=== PATIENT | female | born 1955 | race Caucasian/White ===

== ENCOUNTER 2016-12-08 07:19 | Inpatient (IN) | payer MEDICARE, OTHER ==
[2016-12-07 10:49] LABS: BASOPHILS 0 %; EOSINOPHILS 0 %; HEMATOCRIT 30.5 % (36.0-48.0); HEMOGLOBIN 9.7 g/dL (12.0-16.0); IMMATURE GRANULOCYTES 0.2 %; IMMATURE GRANULOCYTES ABSOLUTE 0.01 10/3/uL (0.0-0.11); LYMPHOCYTES 22.7 %; LYMPHOCYTES ABSOLUTE 1.47 10/3/uL (0.67-4.30); MEAN CORPUS HGB CONC 31.8 g/dL (32.0-36.0); MEAN PLATELET VOLUME 10.3 fL (9.2-13.0); MONOCYTES 9.2 %; NEUTROPHILS 67.9 %; NEUTROPHILS ABSOLUTE 4.41 10/3/uL (2.02-8.40); RBC DISTRIBUTION WIDTH 14.2 % (12.0-16.0); RED CELL COUNT 2.94 10/6/uL (4.0-5.6); WHITE BLOOD CELLS 6.5 10/3/uL (4.5-10.5)
[2016-12-07 10:50] LABS: MANUAL DIFF NO %; MEAN CORPUSCULAR VOLUME 103.7 fL (80-100); PLATELET COUNT 232 10/3/uL (150-400)
[2016-12-07 11:03] LABS: BUN (BLOOD UREA NITROGEN) 34 MG/DL (6-23); CHLORIDE, SERUM 112 MMOL/L (96-112); CO2 (CARBON DIOXIDE) 27 MMOL/L (24-34); CREATININE 0.89 MG/DL (0.55-1.02); GFR AFRICAN AMERICAN 82 ML/MIN (>=60); GFR NON AFRICAN AMERICAN 71 ML/MIN (>=60); POTASSIUM, SERUM 4.6 MMOL/L (3.5-5.3); SODIUM, SERUM 145 MMOL/L (135-148)
[2016-12-07 11:05] LABS: GLUCOSE, SERUM 87 MG/DL (60-99)
--- NOTE | ~2016-12-08 | DS ---
Discharge Summary [facility] [address] [place]. [address] NAME: DEMOND PARADA : 59 STATUS : DIS IN PAT#: [id number] AGE: 61 ADM/REG DATE : 12/08/16 MR#: [id number] REPORT SERV DATE: 01/02/17 DICTATED BY: WILLIAM MADDOX DATE: 01/02/17 REPORT STATUS : Draft TRANSCRIBED BY: MODJr DATE: 01/02/17 ADMISSION DATE: 12/08/2016 DISCHARGE DATE: 12/17/2016 ADMITTING DIAGNOSES: 1. Status post left tibiotalocalcaneal arthrodesis. 2. Charcot arthropathy, left rearfoot and ankle. SECONDARY DIAGNOSES: 1. Diabetes mellitus. 2. Peripheral neuropathy. 3. Status post right ankle fusion. 4. Seizure disorder. HISTORY OF PRESENT ILLNESS: This is a 61-year-old woman with long-standing history of diabetes mellitus with neuropathy. Unfortunately, this young lady has had severe sequela associated with her diabetic neuropathy including multiple ulcerations and previous partial foot amputation. The patient has also undergone a right tibiotalocalcaneal arthrodesis due to the severe Charcot arthropathy of the right rearfoot and ankle several years ago with good result. The patient has previously sustained a left ankle injury. The patient was seen at [facility] and underwent attempted open reduction and internal fixation of the left ankle. The patient's ankle remains displaced and further breakdown has occurred likely due to neuropathic changes as well as posttraumatic changes. The patient developed a pressure ulceration due to the malposition of her ankle. The patient was seen at [facility], where she was treated with IV antibiotic therapy. Removal of the retained internal fixation was performed due to the presence of the infection. The patient was admitted to rehab facility, where she underwent wound care and completed a course of six weeks of IV antibiotic therapy. The wound subsequently healed with good result. The patient was seen in the office and the ankle was evaluated. Due to the repair of the soft tissue envelope, it was recommended that the patient undergo left ankle arthrodesis in order to stabilize the unstable ankle due to her injury and Charcot arthropathy. BRIEF SUMMARY OF THE PATIENT'S HOSPITALIZATION: On hospital day 1, patient underwent left tibiotalocalcaneal arthrodesis with IM nail fixation. The procedure went well, and the rearfoot and ankle construct was in a good rectus position. The patient was placed in a below the knee AO splint and Vazquez compression dressing. The patient was admitted to the hospital for pain management, postoperative antibiotics, medical management of her diabetes, and DVT prophylaxis. The patient was seen by the hospitalist service and started on plan to control her diabetes. The patient was placed on sliding-scale insulin. The patient continued on a WOODYARD CRANE OPERATOR Dilaudid for postoperative pain management. Physical therapy consultation was ordered to assist patient with transfer training as well as nonweightbearing. The patient subsequently developed anemia and underwent transfusion of PRBCs, which she received one unit. There was improvement in her hemoglobin and hematocrit subsequently after the transfusion. The patient also developed this low-grade fever postoperatively. The patient was maintained on Ancef, but had a reaction to the antibiotic and was switched to IV clindamycin. The patient has fevers did gradually improve and her Discharge Summary [address] [address] NAME: DEMOND PARADA : 59 STATUS : DIS IN PAT#: [id number] AGE: 61 ADM/REG DATE : 12/08/16 MR#: [id number] REPORT SERV DATE: 01/02/17 DICTATED BY: WILLIAM MADDOX DATE: 01/02/17 REPORT STATUS : Draft TRANSCRIBED BY: JOCELYNE DATE: 01/02/17 anemia as well as blood glucose levels remain stable. Medicine looked for alternate causes of possible fevers including postoperative atelectasis or UTI. The patient was negative for both. The Dilaudid WOODYARD CRANE OPERATOR was eventually discontinued and patient was started on Lyrica for any neuropathic pain and continued on Percocet for any moderate breakthrough pain. The patient appeared to be medically stable and afebrile and was stable to be discharged to rehab facility. The patient remained in hospital for additional two to three days in order to find shelter placement. On 12/17/2016, the patient was transferred to [facility] for postoperative rehabilitation and assistance with essential activities of daily living. CONDITION ON DISCHARGE: Stable. DISCHARGE DIET: 1800 kcal ADA diet. DISCHARGE MEDICATIONS: Famotidine, Lipitor, Toujeo, Humalog, Keppra, Dilantin, Lyrica, Topamax, Fycompa. /MODL William Maddox D.P.M. / [id number] CC: Lisa Dahl SAJEEL
--- NOTE | ~2016-12-08 | CN ---
Consultation Report [facility] [address] [place]. [address] NAME: DEMOND PARADA : 59 STATUS : ADM IN [facility]#: [id number] AGE: 61 ADM/REG DATE : 12/08/16 MR#: [id number] REPORT SERV DATE: 12/09/16 DICTATED BY: ALIVIA FLORES DATE: 12/08/16 REPORT STATUS : Draft TRANSCRIBED BY: MODL DATE: 12/08/16 CONSULTATION DATE OF CONSULTATION: 12/08/2016 REASON FOR CONSULTATION: Consulted for medical management. REQUESTING PHYSICIAN: Dr. William Maddox. IDENTIFYING DATA: 1. PCP is a doctor in [place], [place], Dr. Henderson. 2. Neurologist is Dr. Destiney Okeefe. 3. Orthopedist is Dr. William Maddox. 4. Diabetes physician is Dr. Araiza. HISTORY OF PRESENT ILLNESS: This is a pleasant 61-year-old female, who has a history of being a type 1 diabetic with a seizure disorder, who has numerous surgeries for amputation as well as fractures and hardware removal. We have been consulted for medical management while she is inpatient. She is presently status post a left ankle fusion with Dr. William Maddox on 12/08/2016. The patient's history was obtained through careful interview with the patient coupled with review in [facility], [facility], analysis consultant notes, and old medical records. PAST MEDICAL HISTORY: 1. Seizure disorder. 2. Cataracts. 3. Wears reading glasses. 4. Menopause at age 45. 5. Diabetes type 1. When she was in rehab from 09/2016 to 11/2016, her average blood sugars were 155 to 250. 6. High cholesterol. 7. Hypertension. 8. Osteoporosis. 9. Iron deficiency anemia. 10.Neuropathy. 11.She was at [facility] in [place], [place] from 09/2016 to 11/2016 for IV antibiotics for left ankle osteomyelitis and management of her blood sugars. HOME MEDICATIONS: 1. Lipitor 20 mg p.o. at bedtime. 2. Toujeo units that are subcu at bedtime based on her blood sugars, where she gets 17 units for blood sugar of 70 to 200, 18 units for blood sugar of 201 to 300, and 19 units for blood sugar of 301 to 400. She is presently substituted with Levemir on Consultation Report [place] [address] [place]. [address] NAME: DEMOND PARADA : 59 STATUS : ADM IN PAT#: [id number] AGE: 61 ADM/REG DATE : 12/08/16 MR#: [id number] REPORT SERV DATE: 12/09/16 DICTATED BY: ALIVIA FLORES DATE: 12/08/16 REPORT STATUS : Draft TRANSCRIBED BY: JOCELYNE DATE: 12/08/16 inpatient status. 3. Humalog sliding scale, which she relates that she takes 5 units at breakfast, 5 units at lunch, and 5 units at dinner. 4. Keppra 4000 mg p.o. at bedtime. 5. Dilantin 200 mg p.o. daily. 6. Lyrica 50 mg p.o. twice a day. 7. Topamax 100 mg p.o. every morning. 8. Fycompa 6 mg p.o. daily. ALLERGIES: NO KNOWN ALLERGIES. SOCIAL HISTORY: The patient is a . She has three grown children. She presently lives with her daughter, but she does have a double-wide trailer. She was a previous smoker, but quit in the . She is nonweightbearing and utilizes a wheelchair. No alcohol or illicit drug use. FAMILY HISTORY: 1. Mother was diabetic and is from pneumonia. 2. Father had Parkinson disease and is from pneumonia. 3. She has one brother, who is diabetic and one sister, who is healthy and living. SURGICAL HISTORY: 1. Appendectomy in 1989. 2. Bilateral IOLI in 2012. 3. Left fourth and fifth toe amputation 01/2016. 4. Right ankle fracture with screws in 1990. 5. Right ankle fusion in 2002. 6. Left ankle fracture in 2014, where hardware was removed in 09/2016. 7. Amputation of the right great toe with removal of second toe bone in 2009. 8. x3. 9. Right wrist fracture with repair in 1989. 10.Left hand tendon surgery at age 15. 11.EGD with biopsy in 09/2004. REVIEW OF SYSTEMS: Negative other than what is included in HPI. Presently, the patient has no chest pain. No shortness of breath. Displays no agitation or confusion, has no fever, no abdominal pain. No nausea and vomiting, but she states she does not have an appetite tonight. PHYSICAL EXAMINATION: VITAL SIGNS: From today, blood pressure 114/65, heart rate 77, respiratory rate 16, O2 saturation 93%. GENERAL: This is a pleasant 61-year-old female, older appearing than her age. She is resting in bed, in no acute distress. NEURO: Her head is atraumatic, normocephalic. She is alert and oriented x3. Her mood is Consultation Report [place] [address] [facility] [address] NAME: DEMOND PARADA : 59 STATUS : ADM IN PAT#: [id number] AGE: 61 ADM/REG DATE : 12/08/16 MR#: [id number] REPORT SERV DATE: 12/09/16 DICTATED BY: ALIVIA FLORES DATE: 12/08/16 REPORT STATUS : Draft TRANSCRIBED BY: JOCELYNE DATE: 12/08/16 pleasant and appropriate. Her cranial nerves 2 through 12 are intact. NECK: Supple. Trachea is midline. No JVD noted. No obvious thyromegaly or lymphadenopathy. EENT: Her sclerae are nonicteric. Her pupils are equal and reactive to light. Her nares are patent. Her mucous membranes moist. Her tongue is midline without deviation. Her soft palate rises equally on phonation. CHEST: No pain with palpation. LUNGS: Clear to auscultation bilaterally with normal respiratory effort. She has no increased work of breathing with conversation. Encouraged to use incentive spirometer q.1 hour while awake to prevent pneumonia. CARDIOVASCULAR: S1, S2. No appreciable murmurs, rubs, or gallops. Rhythm is regular. Rate presently 77. She is on defensive monitoring. ABDOMEN: Soft, nontender, hypoactive bowel sounds. No organomegaly. Last bowel movement on 12/07/2016. EXTREMITIES: Right lower extremity, no edema. Left lower extremity has an Abelardo wrap postoperatively for her left ankle fusion. Normal distal pulse to the right lower extremity. SKIN: Warm and dry. No unusual rashes, lesions. Normal color and turgor. PSYCH: The patient is pleasant, cooperative, appropriate mood and affect. Surgical wound site, her Abelardo wrap to the left lower extremity is clean, dry, and intact. LABORATORY DATA: Sodium 145, potassium 4.6, chloride 112, BUN 34, creatinine 0.89, GFR 82, glucose 87, calcium 9.0. White blood cells 6.5, hemoglobin 9.2, hematocrit 28.0, platelets 232. Blood sugars from today noted as 132, 277, and 231. She had an EKG on 10/09/2016, that displayed normal sinus rhythm with a rate of 67, and a normal EKG. She had an echo previously in 11/2014 with an EF of 55%. ASSESSMENT AND PLAN: 1. This patient was in her 20s to early 30s, she is a diabetic type 1. Aware. At home, she is on Toujeo and Humalog before meals, which is normally 5 units subcutaneous before breakfast, lunch, and dinner. We did note in 2014 that her hemoglobin A1c was 12.2. We will initiate a life educator consult regarding diet and monitoring of her blood sugars, check a hemoglobin A1c this morning. She is not eating tonight at all, so we will hold her Levemir, but we will also check her blood sugar at 2 a.m. and cover her with a sliding scale level 2. We will initiate tomorrow starting with breakfast, lunch, and dinner. She will get 3 units of Humalog before each meal. Staff just needs to make sure the patient is able to eat. She states she is a very brittle diabetic, so there is a fine line in her maintenance. 2. Pain. Postop. She has had a left ankle fusion. She is on ANGLE SHEAR OPERATOR Dilaudid. We will do continuous O2 saturation monitoring while on ANGLE SHEAR OPERATOR and keep her sats 92% or greater. She has no previous history of respiratory problems. 3. Seizure disorder. Aware. She is followed by her neurologist, Dr. Okeefe. We will continue her home meds, which include Keppra, Dilantin, Topamax, and Fycompa for which I believe she has to bring in. 4. Neuropathy. Aware. We will continue her Lyrica. Consultation Report [place] [address] [place]. [address] NAME: DEMOND PARADA SHANTA : 59 STATUS : ADM IN [facility]#: [id number] AGE: 61 ADM/REG DATE : 12/08/16 MR#: [id number] REPORT SERV DATE: 12/09/16 DICTATED BY: MARTHA FLORESJAMMIE COATS DATE: 12/08/16 REPORT STATUS : Draft TRANSCRIBED BY: JOCELYNE DATE: 12/08/16 5. Hyperlipidemia. Aware. We will continue her Lipitor. 6. Labs. BMP, magnesium, CBC, and hemoglobin A1c will be per a.m. labs. We will give her scheduled Levemir starting tomorrow when she starts eating and she will also start her Humalog with 3 units before breakfast, lunch, and dinner and staff will need to make sure she will be eating, but she is a type 1 diabetic. The hospitalist group would like to thank you for this consultation. Please let us know if we could be of any further assistance. /JOCELYNE Alivia Flores NP / [id number] CC: Lisa Dahl MD
--- NOTE | ~2016-12-08 | OP ---
Record Of Operation [facility] [address] [place] [place]. [address] NAME: DEMOND PARADA : 59 STATUS : ADM Sarthak PAT#: [id number] AGE: 61 ADM/REG DATE : 12/08/16 MR#: [id number] REPORT SERV DATE: 12/09/16 DICTATED BY: WILLIAM MADDOX DATE: 12/09/16 REPORT STATUS : Draft TRANSCRIBED BY: MODL DATE: 12/09/16 DATE OF PROCEDURE: 12/08/2016 SURGEON: Dr. William Maddox. STEAM CRANE OPERATOR SURGEON: Anthony Perez DPM PREOPERATIVE DIAGNOSIS: Left Charcot ankle. POSTOPERATIVE DIAGNOSIS: Left Charcot ankle. PROCEDURE: Left tibiotalocalcaneal arthrodesis. ANESTHESIA: General. HEMOSTASIS: 350 mmHg thigh tourniquet. ESTIMATED BLOOD LOSS: 100 mL. MATERIALS: 2-0 Vicryl, 3-0 Vicryl, skin rio. Orly IM arthrodesis nail with four corresponding bone screws for the nail as well as [facility] bone putty. INJECTABLES: 14 mL of 1:1 mixture of 1% Xylocaine plain and 0.5% Marcaine plain. COMPLICATIONS: None. INDICATIONS: This is a 61-year-old white female who has had longstanding history of complications associated with diabetic neuropathy including multiple digital amputations. Patient has also had Charcot arthropathy on the right rear foot and ankle, which necessitated right tibiotalocalcaneal arthrodesis with good result. The patient unfortunately had an injury to her left ankle for which she was seen and treated at [facility]. Patient underwent open reduction and internal fixation. However, this failed and patient subsequently developed a medial ankle ulceration. The patient was seen at [facility] by our service, where the hardware was removed due to the corresponding infection, and she was started on a course of six weeks of IV antibiotics via PICC line. The patient did well with this corresponding therapy and the subsequent wound healed. Based on the patient's history of brittle diabetes and the malposition of the ankle, it was discussed with the patient that due to the Charcot arthropathy in the ankle and rear foot that she undergo a left tibiotalocalcaneal arthrodesis similar to what was done on her right side. We discussed with the patient at length as we did prior to the previous procedure that her history of brittle diabetes puts her at risk of further ulceration and limb loss if she does not have this deformity repaired. We also discussed that unfortunately due to her brittle diabetes and neuropathy that she is at risk for possible infection and nonhealing that could lead to amputation if the surgery is done. Patient understood the risks of the procedure and wished to proceed. The alternatives, benefits, possible complications of the procedure were discussed at length with the patient including the postoperative recovery period. No Record Of Operation [place] [id number] [facility] [place]. [place]. [address] NAME: DEMOND PARADA : 59 STATUS : ADM Sarthak PAT#: [id number] AGE: 61 ADM/REG DATE : 12/08/16 MR#: [id number] REPORT SERV DATE: 12/09/16 DICTATED BY: WILLIAM MADDOX DATE: 12/09/16 REPORT STATUS : Draft TRANSCRIBED BY: JOCELYNE DATE: 12/09/16 promises or guarantees were given and patient was scheduled for surgery. BRIEF SUMMARY OF OPERATION: The patient was brought to the operating room, transferred to the operating room table in supine position. Appropriate monitoring, including EKG, blood pressure, and pulse oximeter were attached to the patient and found to be in good working order. IV access was established by Anesthesia. Patient received preoperative antibiotics. After the patient was identified by the surgeon, general anesthesia was induced. The patient's left foot and leg were prepped and draped in a sterile manner. Left foot and leg were elevated and exsanguinated and a thigh tourniquet was raised to 350 mmHg. Attention was directed toward the lateral aspect of the left ankle where a curvilinear incision was made starting midline left distal fibula and coursing along the course of the peroneal tendons to the area of the base of the 4th metatarsal. Incision was deepened with sharp and blunt dissection. Superficial veins were identified and ligated via electrocautery. Neurovascular structures were identified, retracted from the operative site. Periosteal capsular layer was identified over the level of the distal fibula and a linear capsulotomy was performed over the distal fibula. At this time, the fibular fracture was identified and an osteotomy was performed with a sagittal saw just superior to this fracture site. The fibula was freed from its soft tissue attachments and removed. It was sent to the back table to possibly be later used for bone grafting material. Further deep dissection was carried out through the deep fascia between the plane of the extensor digitorum brevis muscle, which was released from its origin on the floor of the sinus tarsi and the peroneal tendon sheath. The muscle was retracted superiorly and peroneal tendons retracted inferiorly to further expose the lateral aspect of the ankle joint as well as the subtalar joint. The capsule of the subtalar joint was opened to expose the posterior facet of the subtalar joint. The interosseous talocalcaneal ligament was also released in order to facilitate further exposure of the ankle and subtalar joints. At this time, attention was directed toward the anteromedial aspect of the ankle joint, where a longitudinal incision was made over the medial gutter of the left ankle. The incision was deepened with sharp and blunt dissection and superficial veins were identified ligated via electrocautery. Neurovascular structures were identified, retracted from the operative site. Care was maintained not to disrupt the great saphenous vein. Incision through the deep fascia and capsular layer was carried out in order to expose the medial gutter of the left ankle. Soft tissue attachments of the anterior gutter were also released to further expose the talar dome. With good exposure of the ankle joint and subtalar joint, the hyaline cartilage and subchondral bone were removed from the inferior tibia as well as from the dorsal aspect of the talar dome. Hyaline cartilage and subchondral bone were also removed from the posterior facet of the subtalar joint. This was done with the osteotome and mallet as well as a rotary bur and curettage. Care was maintained in order to maintain the contours of the joint surfaces. Denudation of the cartilage and subchondral bone was carried out to the level of good bleeding bone. At this time, the arthrodesis sites were copiously irrigated with normal saline. The joints were placed in a rectus position in order to facilitate fusion. A pin was introduced across the fusion site through the plantar foot via fluoroscopy. Care was taken in order to insert the pin into the intramedullary canal of the left tibia and across the arthrodesis sites. Confirmation of proper position of the pin and rectus position of the fusion was confirmed via fluoroscopy. At this time, a horizontal incision was made at the area of the pin in order to facilitate insertion of the soft tissue Record Of [address] [place]. [address] NAME: DEMOND PARADA : 59 STATUS : ADM Sarthak PAT#: [id number] AGE: 61 ADM/REG DATE : 12/08/16 MR#: [id number] REPORT SERV DATE: 12/09/16 DICTATED BY: WILLIAM MADDOX DATE: 12/09/16 REPORT STATUS : Draft TRANSCRIBED BY: JOCELYNE DATE: 12/09/16 guide and drill. The fusion site was retrograde drilled through the plantar foot, the body of the talus, and into the tibia and into the intramedullary canal. The drill and percutaneous pin were removed. A subsequent pin was inserted into the plantar foot across the fusion sites in the previously made tunnel, and at this time, flexible cortical reamers were used in order to ream the intramedullary canal infusion sites. Reaming was carried out gradually increasing the diameter of the intramedullary reamer to 12 mm where good cortical chatter was heard and felt. The reamers were removed, pin was left in place, and a 150 mm 11 mm diameter IM nail was inserted across the fusion site through the plantar foot. Good position of the IM nail was confirmed via fluoroscopy. The pin was removed and the tibial screws were inserted across the nail followed by the lateral calcaneal and posterior calcaneal screws. Good rectus position of the IM nail as well as the fusion sites were confirmed via fluoroscopy. At this time, the operative site was copiously irrigated with normal saline. The tourniquet had also subsequently been let down at two hours tourniquet time to allow for reperfusion of the tissues. Any defects in the arthrodesis sites were packed with DBM bone putty. Periosteal capsular and deep fascial layers were reapproximated with 2-0 Vicryl suture. Subcutaneous tissue was reapproximated with 3-0 Vicryl suture. Skin at the medial and lateral incisions were then further reapproximated with skin rio. Percutaneous holes made for insertion of the screws across the IM nail were also closed with skin rio. The plantar incision was closed solely with 2-0 Ethilon suture in an interrupted horizontal mattress fashion. Operative site was infiltrated with 14 mL of 1:1 mixture of 1% Xylocaine plain and 0.5% Marcaine plain. Operative sites were then dressed with Xeroform and dry sterile gauze as well as sterile cast padding. The patient was then placed in a modified Vazquez compression dressing with an AO splint. Good capillary refill to the distal residual toes on the left foot was confirmed to be within normal limits after application of the Vazquez compression dressing and an AO splint. The patient tolerated procedure and anesthesia well. Patient left the operating room and returned to her room with vital signs stable and vital signs intact. The patient will be admitted to [facility] for continued IV antibiotic therapy and pain management. Subsequent postoperative care including DVT prophylaxis has also been initiated. A hospitalist consultation has been ordered and ordered for medical management due to the patient's history of brittle diabetes. Once the patient is medically and surgically stable, we will have her discharged home. Reiterated to the patient prior to surgery that strict nonweightbearing for at least eight weeks will be necessary and that we also discussed possible SNF placement for continued care of her right posterior heel wound as well as assistance with essential activities of daily living during the recovery process from her arthrodesis. We will follow up with the patient in the office in approximately one to two weeks' time. /JOCELYNE William Maddox D.P.M. / [id number] Record Of Operation [address] [address] NAME: DEMOND PARADA SHANTA : 59 STATUS : ADM Sarthak PAT#: [id number] AGE: 61 ADM/REG DATE : 12/08/16 MR#: [id number] REPORT SERV DATE: 12/09/16 DICTATED BY: WILLIAM MADDOX DATE: 12/09/16 REPORT STATUS : Draft TRANSCRIBED BY: MODL DATE: 12/09/16 CC: William Maddox D.P.M.
[~2016-12-08 07:19] MED LIST: ASAB PO; D100 PO; FYCOMPA PO; HUMALOGPEN SC; KEPPRA1000 MG PO; LANTUSCART SC; LIPITOR20 PO; LYRICA50 PO; MULTIVIT/MIN PO; MUSCLE RU3 TOP; PRIN20 PO; TOPAMAX25 PO; TOUJEO SQ
[2016-12-08 14:34] LABS: HEMOGLOBIN 9.2 g/dL (12.0-16.0)
[2016-12-08 22:07] LABS: HEMATOCRIT 26.7 % (36.0-48.0); HEMOGLOBIN 8.5 g/dL (12.0-16.0); MANUAL DIFF YES %; MEAN CORPUS HGB CONC 31.8 g/dL (32.0-36.0); MEAN CORPUSCULAR HEMOGLOB 32.6 pg (26.0-34.0); MEAN CORPUSCULAR VOLUME 102.3 fL (80-100); MEAN PLATELET VOLUME 9.6 fL (9.2-13.0); PLATELET COUNT 197 10/3/uL (150-400); RBC DISTRIBUTION WIDTH 14.2 % (12.0-16.0); RED CELL COUNT 2.61 10/6/uL (4.0-5.6); WHITE BLOOD CELLS 9.2 10/3/uL (4.5-10.5)
[2016-12-08 22:13] LABS: CHLORIDE, SERUM 109 MMOL/L (96-112); CO2 (CARBON DIOXIDE) 24 MMOL/L (24-34); CREATININE 0.87 MG/DL (0.55-1.02); GFR AFRICAN AMERICAN 85 ML/MIN (>=60); GFR NON AFRICAN AMERICAN 73 ML/MIN (>=60); POTASSIUM, SERUM 4.1 MMOL/L (3.5-5.3); SODIUM, SERUM 143 MMOL/L (135-148)
[2016-12-08 22:17] LABS: BUN (BLOOD UREA NITROGEN) 24 MG/DL (6-23); GLUCOSE, SERUM 171 MG/DL (60-99)
[2016-12-08 22:20] LABS: BAND NEUTROPHILS 4 %; LYMPHOCYTES 9 %; LYMPHOCYTES ABSOLUTE (CALC) 0.83 10/3/uL (0.67-4.30); MONOCYTES 4 %; MONOCYTES ABSOLUTE (CALC) 0.37 10/3/uL (0.21-1.20); SEGMENTED NEUTROPHIL (0) 83 %; TOTAL NUCLEATED CELLS 100
[2016-12-08 22:21] LABS: PLATELET ESTIMATE ADQ (ADEQUATE); RBC MORPHOLOGY NORM (NORMAL)
[2016-12-09 05:06] LABS: BASOPHILS 0 %; EOSINOPHILS 0 %; HEMATOCRIT 25.5 % (36.0-48.0); HEMOGLOBIN 8.3 g/dL (12.0-16.0); LYMPHOCYTES ABSOLUTE 1.15 10/3/uL (0.67-4.30); MEAN CORPUS HGB CONC 32.5 g/dL (32.0-36.0); MEAN CORPUSCULAR HEMOGLOB 33.7 pg (26.0-34.0); MEAN CORPUSCULAR VOLUME 103.7 fL (80-100); MEAN PLATELET VOLUME 10.1 fL (9.2-13.0); MONOCYTES 11.1 %; MONOCYTES ABSOLUTE 0.85 10/3/uL (0.21-1.20); NEUTROPHILS 73.9 %; NEUTROPHILS ABSOLUTE 5.69 10/3/uL (2.02-8.40); PLATELET COUNT 194 10/3/uL (150-400); RBC DISTRIBUTION WIDTH 14.2 % (12.0-16.0); RED CELL COUNT 2.46 10/6/uL (4.0-5.6); WHITE BLOOD CELLS 7.7 10/3/uL (4.5-10.5)
[2016-12-09 05:07] LABS: MANUAL DIFF NO %
[2016-12-09 05:17] LABS: BUN (BLOOD UREA NITROGEN) 22 MG/DL (6-23); CALCIUM, SERUM 7.8 MG/DL (8.5-10.4); CHLORIDE, SERUM 107 MMOL/L (96-112); CO2 (CARBON DIOXIDE) 27 MMOL/L (24-34); CREATININE 0.94 MG/DL (0.55-1.02); GFR AFRICAN AMERICAN 77 ML/MIN (>=60); GFR NON AFRICAN AMERICAN 66 ML/MIN (>=60); GLUCOSE, SERUM 203 MG/DL (60-99); POTASSIUM, SERUM 4.6 MMOL/L (3.5-5.3); SODIUM, SERUM 141 MMOL/L (135-148)
[2016-12-10 04:55] LABS: BASOPHILS 0 %; EOSINOPHILS 0 %; HEMATOCRIT 23.2 % (36.0-48.0); HEMOGLOBIN 7.5 g/dL (12.0-16.0); IMMATURE GRANULOCYTES 0.1 %; IMMATURE GRANULOCYTES ABSOLUTE 0.01 10/3/uL (0.0-0.11); LYMPHOCYTES 20.6 %; LYMPHOCYTES ABSOLUTE 1.39 10/3/uL (0.67-4.30); MEAN CORPUS HGB CONC 32.3 g/dL (32.0-36.0); MEAN CORPUSCULAR HEMOGLOB 33.5 pg (26.0-34.0); MEAN CORPUSCULAR VOLUME 103.6 fL (80-100); MONOCYTES ABSOLUTE 1.01 10/3/uL (0.21-1.20); NEUTROPHILS 64.3 %; NEUTROPHILS ABSOLUTE 4.34 10/3/uL (2.02-8.40); PLATELET COUNT 183 10/3/uL (150-400); RBC DISTRIBUTION WIDTH 14.1 % (12.0-16.0); RED CELL COUNT 2.24 10/6/uL (4.0-5.6); WHITE BLOOD CELLS 6.8 10/3/uL (4.5-10.5)
[2016-12-10 04:56] LABS: MANUAL DIFF NO %
[2016-12-10 05:13] LABS: BUN (BLOOD UREA NITROGEN) 28 MG/DL (6-23); CALCIUM, SERUM 8.1 MG/DL (8.5-10.4); CHLORIDE, SERUM 105 MMOL/L (96-112); CO2 (CARBON DIOXIDE) 26 MMOL/L (24-34); CREATININE 0.97 MG/DL (0.55-1.02); GFR AFRICAN AMERICAN 74 ML/MIN (>=60); GFR NON AFRICAN AMERICAN 64 ML/MIN (>=60); GLUCOSE, SERUM 271 MG/DL (60-99); POTASSIUM, SERUM 4.2 MMOL/L (3.5-5.3); SODIUM, SERUM 137 MMOL/L (135-148)
[2016-12-10 20:50] LABS: HEMATOCRIT 26.3 % (36.0-48.0); HEMOGLOBIN 8.7 g/dL (12.0-16.0)
[2016-12-11 04:01] LABS: HEMATOCRIT 25.7 % (36.0-48.0); HEMOGLOBIN 8.4 g/dL (12.0-16.0); MEAN CORPUS HGB CONC 32.7 g/dL (32.0-36.0); MEAN CORPUSCULAR HEMOGLOB 33.1 pg (26.0-34.0); MEAN CORPUSCULAR VOLUME 101.2 fL (80-100); MEAN PLATELET VOLUME 10.2 fL (9.2-13.0); PLATELET COUNT 184 10/3/uL (150-400); RBC DISTRIBUTION WIDTH 15.9 % (12.0-16.0); RED CELL COUNT 2.54 10/6/uL (4.0-5.6); WHITE BLOOD CELLS 8.2 10/3/uL (4.5-10.5)
[2016-12-11 04:11] LABS: MANUAL DIFF YES %
[2016-12-11 04:13] LABS: CALCIUM, SERUM 8.2 MG/DL (8.5-10.4); CHLORIDE, SERUM 105 MMOL/L (96-112); CO2 (CARBON DIOXIDE) 24 MMOL/L (24-34); CREATININE 1.09 MG/DL (0.55-1.02); GFR AFRICAN AMERICAN 64 ML/MIN (>=60); GFR NON AFRICAN AMERICAN 56 ML/MIN (>=60); SODIUM, SERUM 136 MMOL/L (135-148)
[2016-12-11 04:24] LABS: POTASSIUM, SERUM 5.1 MMOL/L (3.5-5.3)
[2016-12-11 04:25] LABS: BUN (BLOOD UREA NITROGEN) 24 MG/DL (6-23); GLUCOSE, SERUM 341 MG/DL (60-99)
[2016-12-11 04:29] LABS: LYMPHOCYTES 18 %; LYMPHOCYTES ABSOLUTE (CALC) 1.48 10/3/uL (0.67-4.30); MACROCYTES 1+ (5-10/OIF) (0-5/OIF); MONOCYTES 14 %; MONOCYTES ABSOLUTE (CALC) 1.15 10/3/uL (0.21-1.20); NEUTROPHILS ABSOLUTE (CALC) 5.58 10/3/uL (2.02-8.40); PLATELET ESTIMATE ADQ (ADEQUATE); SEGMENTED NEUTROPHIL (0) 68 %; TOTAL NUCLEATED CELLS 100
[2016-12-11 14:08] LABS: ASCORBIC ACID (UR NOT ORDER) NEG (NEG); BILIRUBIN, URINE NEGATIVE (NEG); KETONE, URINE 20 MG/DL (NEG); LEUKOCYTE ESTERASE(NOT OR NEG (NEG); WBC (NOT ORDERED) (RFLEX) 1 (0-5)
[2016-12-12 09:45] LABS: WBC (NOT ORDERED) (RFLEX) 0 (0-5)
[2016-12-12 09:51] LABS: ASCORBIC ACID (UR NOT ORDER) NEG (NEG); BILIRUBIN, URINE NEGATIVE (NEG); KETONE, URINE NEGATIVE (NEG); LEUKOCYTE ESTERASE(NOT OR NEG (NEG)
[2016-12-12 10:02] LABS: BASOPHILS 0.1 %; BASOPHILS ABSOLUTE 0.01 10/3/uL (0.0-0.16); EOSINOPHILS 0 %; HEMATOCRIT 27.1 % (36.0-48.0); HEMOGLOBIN 8.9 g/dL (12.0-16.0); IMMATURE GRANULOCYTES 0.2 %; IMMATURE GRANULOCYTES ABSOLUTE 0.02 10/3/uL (0.0-0.11); LYMPHOCYTES 15.4 %; LYMPHOCYTES ABSOLUTE 1.54 10/3/uL (0.67-4.30); MANUAL DIFF NO %; MEAN CORPUS HGB CONC 32.8 g/dL (32.0-36.0); MEAN CORPUSCULAR HEMOGLOB 32.8 pg (26.0-34.0); MEAN PLATELET VOLUME 10.5 fL (9.2-13.0); MONOCYTES 14.3 %; MONOCYTES ABSOLUTE 1.43 10/3/uL (0.21-1.20); PLATELET COUNT 249 10/3/uL (150-400); RED CELL COUNT 2.71 10/6/uL (4.0-5.6)
[2016-12-15 04:46] LABS: BASOPHILS 0 %; EOSINOPHILS 0 %; HEMATOCRIT 25.3 % (36.0-48.0); HEMOGLOBIN 8.3 g/dL (12.0-16.0); IMMATURE GRANULOCYTES 0.1 %; IMMATURE GRANULOCYTES ABSOLUTE 0.01 10/3/uL (0.0-0.11); LYMPHOCYTES 20.2 %; LYMPHOCYTES ABSOLUTE 1.39 10/3/uL (0.67-4.30); MEAN CORPUS HGB CONC 32.8 g/dL (32.0-36.0); MEAN CORPUSCULAR HEMOGLOB 33.1 pg (26.0-34.0); MEAN CORPUSCULAR VOLUME 100.8 fL (80-100); MEAN PLATELET VOLUME 9.8 fL (9.2-13.0); MONOCYTES 13.8 %; MONOCYTES ABSOLUTE 0.95 10/3/uL (0.21-1.20); NEUTROPHILS 65.9 %; NEUTROPHILS ABSOLUTE 4.54 10/3/uL (2.02-8.40); PLATELET COUNT 270 10/3/uL (150-400); RBC DISTRIBUTION WIDTH 14.3 % (12.0-16.0); RED CELL COUNT 2.51 10/6/uL (4.0-5.6); WHITE BLOOD CELLS 6.9 10/3/uL (4.5-10.5)
[2016-12-15 04:47] LABS: MANUAL DIFF NO %
[2016-12-16 04:58] LABS: CALCIUM, SERUM 8.7 MG/DL (8.5-10.4); CHLORIDE, SERUM 107 MMOL/L (96-112); CO2 (CARBON DIOXIDE) 26 MMOL/L (24-34); CREATININE 0.99 MG/DL (0.55-1.02); GFR AFRICAN AMERICAN 72 ML/MIN (>=60); GFR NON AFRICAN AMERICAN 62 ML/MIN (>=60); POTASSIUM, SERUM 4.7 MMOL/L (3.5-5.3); SODIUM, SERUM 140 MMOL/L (135-148)
[2016-12-16 04:59] LABS: BUN (BLOOD UREA NITROGEN) 40 MG/DL (6-23); GLUCOSE, SERUM 205 MG/DL (60-99)
== END 2016-12-17 14:19 | DRG 982 ==
LOC: SDC 07:19 → 3SO 17:08
PROVIDERS: Internal Medicine; Nurse Practitioner; Nurse Practitioner Family; Podiatrist
PROC: 0SGJ04Z Fusion of Left Tarsal Joint with Internal Fixation Device, Open Approach (ICD-10-PCS; 2016-12-08)
PROC: 0SGJ04Z Fusion of Left Tarsal Joint with Internal Fixation Device, Open Approach (ICD-10-PCS; 2016-12-08)
PROC: 0SGJ0JZ Fusion of Left Tarsal Joint with Synthetic Substitute, Open Approach (ICD-10-PCS; 2016-12-08)
PROC: 0SGJ0JZ Fusion of Left Tarsal Joint with Synthetic Substitute, Open Approach (ICD-10-PCS; 2016-12-08)
PROC: 0SGJ0JZ Fusion of Left Tarsal Joint with Synthetic Substitute, Open Approach (ICD-10-PCS; 2016-12-08)
PROC: 0SGJ04Z Fusion of Left Tarsal Joint with Internal Fixation Device, Open Approach (ICD-10-PCS; principal; 2016-12-08 08:45)
PROC: 30233N1 Transfusion of Nonautologous Red Blood Cells into Peripheral Vein, Percutaneous Approach (ICD-10-PCS; 2016-12-10)
DX: A52.16 Charcot's arthropathy (tabetic) (principal); L97.419 Non-pressure chronic ulcer of right heel and midfoot with unspecified severity; E10.621 Type 1 diabetes mellitus with foot ulcer; E10.42 Type 1 diabetes mellitus with diabetic polyneuropathy; E10.610 Type 1 diabetes mellitus with diabetic neuropathic arthropathy; D62 Acute posthemorrhagic anemia; E10.65 Type 1 diabetes mellitus with hyperglycemia; G40.909 Epilepsy, unspecified, not intractable, without status epilepticus; E78.5 Hyperlipidemia, unspecified
CPT/HCPCS: 36415; 71010; 73610-LT; 80048; 81001; 82947; 82962; 83036; 83735; 84145; 85014; 85018; 85025; 86850; 86900; 86901; 86920; 93005; 97110-GP; 97116-GP; 97161-GP; A9270-GY; C1713; C1769; G8978-CJ-GP; G8979-CI-GP; J0690; J1170; J2250; J2370; J2405; J2710; J3010; P9016; P9040

== ENCOUNTER 2017-01-21 17:44 | Inpatient (IN) | payer MEDICARE, OTHER ==
--- NOTE | ~2017-01-21 | CN ---
Consultation Report [facility] [address] [place]. [address] NAME: DEMOND PARADA : 59 STATUS : ADM IN [facility]#: [id number] AGE: 61 ADM/REG DATE : 01/21/17 MR#: [id number] REPORT SERV DATE: 01/23/17 DICTATED BY: STEFANI TONG DATE: 01/23/17 REPORT STATUS : Draft TRANSCRIBED BY: MODL DATE: 01/23/17 INFECTIOUS DISEASE CONSULT DATE OF CONSULTATION: REASON FOR REFERRAL: Evaluation and treatment of foot infection. HISTORY OF PRESENT ILLNESS: The patient is a 61-year-old female. She has a history of hypertension, diabetes mellitus, hyperlipidemia, past seizures, Charcot joint malformations in both feet. She underwent extensive surgery on 12/07/[address] Maddox, because of the Charcot changes, there was a left tibiotalar calcaneal arthrodesis, which involved placement of hardware, and she initially did well, but then about 10 days ago, she fell out of her chair, and her chair then rolled over her ankle, and suffering extensive trauma at the operative site. She had increase in pain, but did not seek medical attention until just a couple days ago at which point, when the cast was taken off. The wound was obviously infected, the screw had protruded out through the skin with the trauma. She was taken for debridement yesterday including bone biopsy. Material shows gram-positive cocci on the Gram stain. She did have fever to 101, just before the surgery. She was on no antibiotics prior to coming into the hospital. She is on empiric vancomycin and cefepime now. No other unusual environmental exposures or trauma. PAST MEDICAL HISTORY: Otherwise unremarkable. MEDICATIONS: As mentioned above. ALLERGIES: SHE HAS REPORTEDLY AN ALLERGY TO ANCEF, WHICH CAUSES A RASH. SOCIAL HISTORY: She was is disabled. . Nonsmoker. No history of alcohol or substance abuse. FAMILY HISTORY: Noncontributory. PHYSICAL EXAMINATION: GENERAL: A nontoxic adult female, in no acute distress. She is alert and oriented x3. VITAL SIGNS: Her temperature after the 101 night before last, decreased to 100.2 early yesterday morning, and normal since then 98.2 at present, with a pulse of 71, respirations 16, blood pressure 135/66, her weight is 55 kg. HEENT: Sclerae are clear. There are no oral lesions. NECK: Supple. LUNGS: Clear. HEART: Regular rate and rhythm. ABDOMEN: Soft, nontender. Positive bowel sounds. EXTREMITIES: The surgical site on the left foot is covered by a thick bulky dressing/cast, skin above it appeared to be normal. No other skin, soft tissue, or extremity lesions are Consultation Report [address] [place]. [address] NAME: DEMOND PARADA : 59 STATUS : ADM IN [facility]#: [id number] AGE: 61 ADM/REG DATE : 01/21/17 MR#: [id number] REPORT SERV DATE: 01/23/17 DICTATED BY: STEFANI TONG DATE: 01/23/17 REPORT STATUS : Draft TRANSCRIBED BY: JOCELYNE DATE: 01/23/17 noted. LABORATORY DATA: White blood cell count at admission was 9.5, it is 6.8 today, with hematocrit 25.8, platelets 252, normal differential. No white blood cell count. BUN and creatinine 22 and 0.74. Her sedimentation rate was greater than 140. Cultures are pending. Blood cultures that were sent at admission remain negative. The cultures on 01/21/2017, showed gram-positive cocci. IMPRESSION: Infection at the site of past surgery, due to trauma to it, and is most likely Staph aureus. RECOMMENDATIONS: 1. Continue vancomycin. 2. Stop cefepime. 3. Review the cultures later today. 4. Follow the patient with you. 5. I appreciate very much your consulting on this patient. TRACY Stefani Tong M.D. / [id number] CC: MD Adriel Rodríguez MD Aaron Solomon, D.P.Miriam
--- NOTE | ~2017-01-21 | OP ---
Record Of Operation [facility] [address] [place]. [address] NAME: DEMOND PARADA : 59 STATUS : DIS IN PAT#: [id number] AGE: 61 ADM/REG DATE : 01/21/17 MR#: [id number] REPORT SERV DATE: 02/15/17 DICTATED BY: DARRION ALLEN DATE: 02/15/17 REPORT STATUS : Draft TRANSCRIBED BY: MODL DATE: 02/15/17 DATE OF PROCEDURE: 02/05/2017 PREPROCEDURE DIAGNOSIS: Non-healing ankle fracture x2 years. PROCEDURE PERFORMED: Left below-knee amputation. ATTENDING PHYSICIAN: Darrion Allen MD. ANESTHESIA: General. COMPLICATIONS: None. INDICATION FOR PROCEDURE: Secondary to this very pleasant 61-year-old female, chronically ill secondary to a non-healing left ankle fracture. Secondary to this, the patient has been in multiple hospitalizations for the last two years associated with this MALDI. Recommendations were made for left below-knee amputation. Consent was obtained. DETAILS OF PROCEDURE: The patient was brought to the operating room, placed in supine position, prepped and draped in routine sterile fashion with attention to the left foot and leg. The anterior tibial tuberosity was then found and one hand stand below this. A transverse incision was made anteriorly and then a flap created posteriorly in a fishmouth type configuration. Dissection down through the skin, subcutaneous tissues, and to the medial lateral compartments were then performed, dissecting muscle. The vasculature was then located, clamped, divided, and then individually ligated. The tibia was then transected first a 45-degree angle and then a straight 90-degree angle to the plane of the bed and this created nice shelf on the tibia. The fibula was then transected and a piece of bone was removed. Next, the dissection proceeded down to the neurovascular bundle, which was clamped and divided. The posterior flap was then created and the specimen was then passed off to the field. Next, the major vascular and neurovascular structures were then ligated and divided and all bleeding points were then controlled with ligature or cautery and then the bone was rasped smooth. The whole area was then flushed copiously and then a 2nd round of hemostasis was obtained with cautery. At this point, the hemostasis was reasonable. The fascia was then closed with interrupted Vicryl suture and skin closed with rio. Standard pressure dressing was applied. The patient tolerated the procedure well. CL/MODL Darrion Allen M.D. / [id number] CC: Record Of Operation [address] [address] NAME: DEMOND PARADA : 59 STATUS : DIS IN PAT#: [id number] AGE: 61 ADM/REG DATE : 01/21/17 MR#: [id number] REPORT SERV DATE: 02/15/17 DICTATED BY: DARRION ALLEN DATE: 02/15/17 REPORT STATUS : Draft TRANSCRIBED BY: JOCELYNE DATE: 02/15/17 MD Adriel Lutz MD
--- NOTE | ~2017-01-21 | HP ---
History And Physical [place] [id number] [facility] [place]. [address] NAME: DEMOND PARADA : 59 STATUS : ADM IN [facility]#: [id number] AGE: 61 ADM/REG DATE : 01/21/17 MR#: [id number] REPORT SERV DATE: 01/22/17 DICTATED BY: IHSAN LUGO DATE: 01/21/17 REPORT STATUS : Draft TRANSCRIBED BY: MODJr DATE: 01/21/17 DATE OF ADMISSION: 01/21/2017 REASON FOR ADMISSION: Left foot osteomyelitis. HISTORY OF HOSPITAL STAY: A 61-year-old white female with past medical history of diabetes type 2, diabetic neuropathy, hypertension, hyperlipidemia, seizures, status post left tibial talocalcaneal arthrodesis secondary Charcot joint that was done on 12/09/[address] Maddox presenting with left foot osteomyelitis. The patient states that she fell approximately one week ago when she was trying to reach for her wheelchair and unfortunately, the wheelchair did not have the brakes lock and hence the patient fell. The patient did not seek medical attention at that time but rather waited for her usual appointment with Dr. Maddox for a followup for a left foot tibial talocalcaneal arthrodesis. During the time that the patient was being seen, the ui lead developer who saw the patient noted increased swelling on the left foot. Initial x-ray shows nothing unusual until the ui lead developer cut open the cast of the patient. On observation, the patient was noted to have a screw that was sticking out of the medial malleolus of the left foot, approximately about 3-5 mm were seen. At this point, the patient was then transferred to [facility] for further evaluation and treatment. Upon arrival on , the patient was asked if she had any symptoms of fevers, chills, chest pain, shortness of breath, cough, or sputum, the patient denied any symptoms whatsoever. PAST MEDICAL HISTORY: As above. MEDICATIONS: The patient takes: 1. Aspirin 81 mg p.o. daily. 2. Lipitor 40 mg p.o. daily. 3. Keppra 100 mg p.o. b.i.d. 4. Lisinopril 20 mg p.o. daily. 5. Lyrica 50 mg p.o. t.i.d. 6. Topiramate 25 mg p.o. b.i.d. 7. Toujeo SoloSTAR 30 units unknown units/frequency and Humalog sliding scale. 8. Multivitamin 1 tab daily next. ALLERGIES: NO KNOWN DRUG ALLERGIES. SOCIAL HISTORY: Nonsmoker, nondrinker. FAMILY HISTORY: Significant for diabetes, Parkinson's, and heart condition. REVIEW OF SYSTEMS: A 10-point review of systems conducted, which were negative except for above complaints. PHYSICAL EXAMINATION: VITAL SIGNS: Temp 98.7, pulse 82, respiratory rate 16, BP 142/74, and O2 saturation 98% on 2 L. History And Physical [address] [address] NAME: DEMOND PARADA : 59 STATUS : ADM IN [facility]#: [id number] AGE: 61 ADM/REG DATE : 01/21/17 MR#: [id number] REPORT SERV DATE: 01/22/17 DICTATED BY: IHSAN LUGO DATE: 01/21/17 REPORT STATUS : Draft TRANSCRIBED BY: JOCELYNE DATE: 01/21/17 HEENT: Head and neck; normocephalic and atraumatic. CARDIOVASCULAR: S1, S2. Regular rate and rhythm. LUNGS: Good air entry. No wheeze, rales, or rhonchi. ABDOMEN: Soft, nontender, nondistended. EXTREMITIES: No clubbing, cyanosis, or edema. There is an incision on the left lateral foot. Sobieski are intact, however, there is discharge approximately 11 inches. There is a screw extruding from the left medial malleolus approximately 3-5 mm. There is erythema around the site. The patient denies any pain on palpation. NEUROLOGICAL EXAM: Awake, alert, and oriented x3. Cranial nerves 2 through 12 grossly intact. LABS: None. ASSESSMENT AND PLAN: 1. Left foot osteomyelitis. The patient had a recent left tibial talocalcaneal arthrodesis secondary to Charcot joint. This was done on 12/09/2016. Need to rule out osteomyelitis. We will start the patient on Vanco as well as cefepime to cover for MRSA and Pseudomonas. Also, we will order CT scan of the left foot to further evaluation for osteomyelitis. In addition, we will have consult with Dr. Valladares, phone number [phone] for further evaluation of the left foot. 2. Diabetes type 2. We are going to continue the patient's sliding scale level 2. Check blood sugar a.c. and at bedtime and start the patient on Levemir 10 units subcu at bedtime. 3. Hypertension. Continue lisinopril, hydralazine p.r.n. for systolic greater than 160. 4. Hyperlipidemia. Continue Lipitor and check lipid panel. 5. Seizures. Continue Keppra and topiramate. 6. DVT prophylaxis. We will give the patient heparin. FBJ/MODL Ihsan Lugo MD / [id number] CC: MD Adriel Rodríguez MD
--- NOTE | ~2017-01-21 | OP ---
Record Of Operation [facility] [address] [place]. [address] NAME: DEMOND PARADA : 59 STATUS : ADM IN [facility]#: [id number] AGE: 61 ADM/REG DATE : 01/21/17 MR#: [id number] REPORT SERV DATE: 01/22/17 DICTATED BY: ANTHONY BRENNER DATE: 01/22/17 REPORT STATUS : Draft TRANSCRIBED BY: JOCELYNE DATE: 01/22/17 DATE OF PROCEDURE: PRE-PROCEDURE DIAGNOSES: 1. Charcot deformity of the left lower extremity. 2. Osteomyelitis of the left lower extremity. 3. Postop Charcot reconstruction with IM nail, left lower extremity. POSTPROCEDURE DIAGNOSES: 1. Charcot deformity of the left lower extremity. 2. Osteomyelitis of the left lower extremity. 3. Postop Charcot reconstruction with IM nail, left lower extremity. PROCEDURE PERFORMED: 1. Incision and drainage of the left foot and ankle. 2. Bone biopsy of the left foot and ankle. HEMOSTASIS: Locally controlled. MATERIALS UTILIZED: 3-0 nylon. SPECIMENS REMOVED: Calcaneal bone for biopsy, Shruti bone for biopsy, and IM wilfredo screw for pathology. INJECTABLES: None. ANESTHESIA: General anesthesia. COMPLICATIONS: None. INDICATIONS FOR PROCEDURE: This is a 61-year-old female, well known to Dr. Maddox's services, on 12/14/2016, he performed a tibiotalar calcaneal fusion as a Charcot reconstruction of the left lower extremity using an IM nail. The patient has been following up routinely with Dr. Maddox's. She has been nonweightbearing in a cast and was placed in a rehab facility immediately postoperatively. The patient was recently evaluated by another practitioner in his practice, at which point, she noted that there was an abnormality on x- ray imaging, which revealed that both the talar and calcaneal screws were backing out. She immediately took down the cast, and noted that there was exposed hardware of the calcaneus, and complete dehiscence of the lateral incision. She also noted there was significant erythema, edema, and warmth to the entire ankle complex, as well as the medial calcaneus. The patient was then sent immediately as a direct admit to [facility] where an x-ray images were obtained. Podiatry was consulted, at which point, the patient was seen at bedside, and there was noted to be exposed hardware. The hardware was immediately removed and sent for pathology as a specimen. The patient was immediately placed n.p.o. after midnight and scheduled for surgery the following day. The patient understands the risks, benefits, and complications of procedure and has elected to sign the consent. The patient Record Of [address] [place]. [address] NAME: DEMOND PARADA : 59 STATUS : ADM IN PAT#: [id number] AGE: 61 ADM/REG DATE : 01/21/17 MR#: [id number] REPORT SERV DATE: 01/22/17 DICTATED BY: ANTHONY BRENNER DATE: 01/22/17 REPORT STATUS : Draft TRANSCRIBED BY: JOCELYNE DATE: 01/22/17 also understands that in any procedure there are no guarantees given. The patient also understands that due to the nature of her condition, Charcot deformity, cellulitis, exposed hardware, and the possibility of hardware infection that she is at extremely high risk for osteomyelitis of the foot, ankle, and leg, which could result in a below-knee amputation. The patient also understands that this is going to be a staged situation at which point, Dr. Maddox, once he returns from vacation will be following up with the patient and evaluating again on Wednesday. Podiatry generating station mechanic will follow up with the patient over the weekend and monitor, and then defer care to Dr. Maddox's services. PROCEDURE IN DETAIL: The patient was brought into the operating room, placed on the operating table in supine position. After administration of the above mentioned anesthesia, a well-padded pneumatic tourniquet was placed about the left lower extremity, but was not inflated. The left lower extremity was then prepped and draped in usual aseptic manner. Attention was directed to the medial aspect of the foot and ankle where a long incision with rio from the first surgery were still in place. The rio were then removed and there was also noted to be complete exposure of half the talar screw. The talar screw was removed manually and passed off the operative field to the back table. The remaining rio were then removed. There was noted to be coapting of the skin incisions proximally, however, with the central portion dehiscence of approximately 5 cm in length and 3 cm in diameter, with complete penetration to the bone. There was significant cellulitis and warmth. There was no purulent drainage. A rongeur was utilized to excise a portion of bone where the previous screw has set in. Bone was passed off the operative field to be sent for pathology. Attention was then directed to the medial aspect of the calcaneus where the previous screw the day before had been removed. There was noted to be extensive cellulitis and warmth, and the screw hole measuring approximately 2 x [address] down to bone, therefore, rongeur was utilized to excise the calcaneal bone and passed off the operative field to be sent for pathology and microbiology in order to tailor antibiotics. Next, both the medial and lateral incisions were pulse lavaged with 3 L of normal sterile saline. Prior to this a hemostat was utilized for blunt dissection on both the medial and lateral side and under 90 degrees to make sure that there were no purulent pockets or abscesses around the dehiscence site, there was noted to be none. The incisions both medially and laterally were then pulse lavaged with 3 L of normal sterile saline. The proximal aspects of both dehisced medial and lateral sides were then reapproximated loosely with 3-0 Prolene in order to prevent bleeding as the patient had good vascularity, due to her Charcot deformity. The incision and wounds were then dressed with Adaptic, Betadine, 4x4s, ABD, Kerlix, and a removable posterior splint to prevent further dislocation of the ankle joint. 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 The patient tolerated anesthesia and procedure well, and was transferred to PACU, with vital signs stable, and neurovascularly intact. The patient will be followed up tomorrow with a repeat CBC, basic metabolic panel, as well as vitals per floor protocol. SB/MODL Record Of Operation [facility] [address] [facility] [address] NAME: DEMOND PARADA : 59 STATUS : ADM IN [facility]#: [id number] AGE: 61 ADM/REG DATE : 01/21/17 MR#: [id number] REPORT SERV DATE: 01/22/17 DICTATED BY: ANTHONY BRENNER DATE: 01/22/17 REPORT STATUS : Draft TRANSCRIBED BY: JOCELYNE DATE: 01/22/17 Anthony Brenner DPM / [id number] CC: MD Adriel Rodríguez MD
--- NOTE | ~2017-01-21 | DS ---
Discharge Summary [facility] [address] [place]. [address] NAME: DEMOND PARADA : 59 STATUS : DIS IN PAT#: [id number] AGE: 61 ADM/REG DATE : 01/21/17 MR#: [id number] REPORT SERV DATE: 02/12/17 DICTATED BY: DATE: REPORT STATUS : Draft TRANSCRIBED BY: MODL DATE: 02/10/17 ADMISSION DATE: 01/21/2017 DISCHARGE DATE: 02/10/2017 DISCHARGE DIAGNOSES: 1. Left foot osteomyelitis, postop day five, left below-knee amputation. 2. Diabetes mellitus type 2 with hyperglycemia. 3. Hypertension. 4. Dehydration. 5. Acute on chronic anemia. 6. Seizures. 7. Mild depression. CONSULTATIONS: 1. Psychiatry, Tommy Montes M.D. 2. Infectious Disease, Bill Arambula M.D. 3. Podiatry, Anthony Perez DPM. 4. Vascular, Darrion Allen M.D. PROCEDURES AND IMAGIN. 01/21/2017: X-ray of the left foot and ankle showed:. a. Status post arthrodesis of the tibiotalar and subtalar joints, one of the distal interlocking screws have been removed and the other appears to have backed out with the tip being just subjacent to the skin. There was an abundance of soft tissue swelling without definite plain film evidence of osteomyelitis. b. Expected appearance after amputation of the fourth and fifth digits without evidence of osteomyelitis in the foot. 2. 01/21/2017: CT of the left lower extremity without contrast showed:. a. Postoperative left ankle fusion. No obvious bone destruction is identified to strongly suggest osteomyelitis. b. Extensive left distal lower extremity edema. No definite abscess is appreciated. 3. 01/22/2017: Portable of the left ankle showed arthrodesis of the tibiotalar and subtalar joints with orthopedic and wilfredo traversing in distal left tibia and extending into the talus. Diffuse soft tissue swelling is similar to previous study. 4. [facility] findings compatible with sepsis of the tibiotalar joint. Since the medullary wilfredo extends through this region, osteomyelitis must be strongly considered. 5. 02/04/2017: Arterial Doppler of the left foot showed normal arterial flow to the right ankle. The right second toe waveforms are diminished indicating small vessel disease. Normal arterial flow to the left ankle and left posterior tibial artery. There is moderate disease involving the dorsalis pedis artery as indicated by monophasic flow. Left great toe waveform is diminished indicating small vessel disease. PROCEDURE: The patient has left BKA on 02/05/[address] Allen. Discharge Summary [address] [place]. [address] NAME: DEMOND PARADA : 59 STATUS : DIS IN PAT#: [id number] AGE: 61 ADM/REG DATE : 01/21/17 MR#: [id number] REPORT SERV DATE: 02/12/17 DICTATED BY: DATE: REPORT STATUS : Draft TRANSCRIBED BY: MODJr DATE: 02/10/17 HOSPITAL COURSE: Please refer to initial H and P dictated by Dr. Ihsan Lopez dated 01/22/2017 for complete details regarding patient's admission. Please refer to interim discharge summary by Darrion Johnson, nurse-practitioner, dictated on 02/01/2017. Please refer to interim discharge summary by Dr. Iain Coates, dated 02/08/2017. On my assumption of care, her blood sugar was uncontrolled with blood sugars being elevated up to 600. The patient was refusing to attempt Levemir due to previous hypoglycemic episodes when she was on this. The patient has been seeing Dr. Araiza, Endocrine, who had started her on Toujeo. We will be continuing Toujeo 10 units every a.m. and p.m. as well as having the patient on NovoLog 6 units with meals and NovoLog sliding scale level 2 with meals and at bedtime. The patient does suffer from acute on chronic anemia but is on no medication for this. This was exacerbated by having surgery and her hemoglobin has gotten as low as 7.5 with hematocrit of 23.9. Baseline for the last several years appears to be 8.5. The patient was given 1 L of fluid last night due to dehydration and BUN of 49. This subsequently placed her hemoglobin at 7.1 with hematocrit of 21.9, which we are assuming to be delusional. Iron studies have been done and serum iron is 39%, saturation is 21, vitamin D is 18, ferritin is 248, TIBC is 185, and B12 is 526. The patient will be started on 50,000 units today and will be using weekly x12 weeks. It was discussed with the patient that she should be following up with her PCP seven to 10 days postop to evaluate her daily vitamin D needs after 12 week treatment. The patient has not experienced any episodes of hypertension during this stay. Had previously been on Abelardo one year ago, but has not taken for the last year. The patient requires many medications for her seizures and is currently on Keppra, Dilantin, Topamax, and Fycompa. The patient has not experienced any seizure activity during her stay. The patient was evaluated by Dr. Montes and it was felt that she had mild situational depression due to her health needs and no recommendations of medication was given at that time. The patient has had a PICC line during her stay, which was discontinued yesterday when it was determined the patient did not need any IV antibiotics due to having her [id number] amputation. The patient has been refusing any pain medication due to fear of having hypoglycemic episodes and not being aware of her blood pressure dropping. The patient has not taken any narcotics in the last few days. Her current pain is 3/10 despite physical therapy. We are discharging the patient to rehab today if a bed is available. PHYSICAL EXAMINATION: VITAL SIGNS: Blood pressure 122/60, O2 saturation is 96% on room, temperature is 98.4, respirations are 16, and heart rate is 72. HEENT: Head is atraumatic, normocephalic. Pupils are equal, round, reactive to light and accommodation. No xanthelasma. Sclerae are clear and nonicteric. Good dentition. NECK: Supple with no palpable lymphadenopathy or thyromegaly. Neck veins are flat. CARDIAC: The patient has S1 and S2 with no obvious murmurs, rubs, or gallops. GASTROINTESTINAL: Abdomen is soft and nontender with active bowel sounds in all four quadrants. Normal bowel habitus. No palpable organomegaly. EXTREMITIES: The patient has 1+ posterior tibial pulse in her right lower extremity. Her right lower extremity is deformed with Charcot joints. The patient has scaling and a wound on her right heel. This has been treated by Wound Care and is getting Mepilex. The patient also has a left BK amputation. Discharge Summary [facility] [address] [facility] [place]. [address] NAME: DEMOND PARADA : 59 STATUS : DIS IN PAT#: [id number] AGE: 61 ADM/REG DATE : 01/21/17 MR#: [id number] REPORT SERV DATE: 02/12/17 DICTATED BY: DATE: REPORT STATUS : Draft TRANSCRIBED BY: JOCELYNE DATE: 02/10/17 MUSCULOSKELETAL: The patient moves all extremities x4. Is ambulatory with a walker. SKIN: Warm and dry with normal color and turgor. NEURO/PSYCH: The patient is alert and oriented x4, pleasant and cooperative. Cranial nerves 2 through 12 are grossly intact. DISCHARGE DIET: 1800 calorie diabetic diet. DISCHARGE MEDICATIONS: Atorvastatin 20 mg daily; NovoLog 6 units before meals, sliding scale level two, NovoLog before meals and at bedtime; Keppra 4000 mg at bedtime; Dilantin 200 mg every morning; Lyrica 50 mg twice daily; Fycompa 6 mg daily; Toujeo 10 units twice daily; Topamax 100 mg daily; Tylenol 650 mg p.o. or q.4 hours p.r.n. pain or temp greater than 101; Santyl ointment to right heel ulcer topically; Colace 100 mg twice daily as needed; glucose tablets three to six tablets p.r.n. low blood sugar; Zofran 4 mg p.o. or sublingually every four hours as needed for nausea and vomiting; and Senokot two tablets as needed at bedtime for constipation. ALLERGIES: THE PATIENT IS ALLERGIC TO CEFAZOLIN, BUT DOES NOT REMEMBER WHAT TYPE OF REACTION SHE HAD. DISCHARGE INSTRUCTIONS: The patient is to follow up with her PCP in seven to 10 days after rehab discharge. The patient will be following up with Vascular Surgery in six to seven weeks from discharge date here at the hospital. They will call patient with the appointment. The patient is to follow up with Dr. Araiza, Endocrinology, on 02/16/2017 for which she has an appointment. We are requesting [facility] to send a copy of her blood glucose log with blood sugars a.c. and at bedtime as well as her insulin administration from [facility]. Approximately 40 minutes has been spent coordinating discharge care of this patient including [id number] encounter and summarization of the discharge. DICTATED BY: SHENA Moon/JOCELYNE Elaine Christiansen NP / [id number] CC: MD Adriel Lutz MD
--- NOTE | ~2017-01-21 | IDS ---
Interim Discharge Summary [facility] [address] [place]. [address] NAME: DEMOND PARADA : 59 STATUS : ADM IN PAT#: [id number] AGE: 61 ADM/REG DATE : 01/21/17 MR#: [id number] REPORT SERV DATE: 02/08/17 DICTATED BY: SHELBY OLIVAS DATE: 02/08/17 REPORT STATUS : Draft TRANSCRIBED BY: MODJr DATE: 02/08/17 ADMISSION DATE: 01/21/2017 DISCHARGE DATE: This is an interim discharge summary, in addition to interim discharge summary dictated by Dr. Darrion Johnson, on 02/01/2017. I assumed care of the patient on 02/02/2017. The patient remained hemodynamically stable. At the time of my assumption of care, her blood sugar was not controlled. I did make adjustments to her insulin regimen as necessary, however the patient states that she was afraid of becoming hypoglycemic and would rather be on her home regimen, which was prescribed by her market research specialist. Given this request, the patient was returned back to her home insulin regimen. On this plan, the patient has severe fluctuations in her blood sugars. For her left foot osteomyelitis, the patient was taken to the OR on 02/05/2017 for a left vcgxq-fne-kuli amputation. Status post procedure, the patient was returned to the room, where she has remained hemodynamically stable. However status post procedure, the patient has appeared somewhat depressed. Given these findings, a psychiatry consult was placed to have the patient evaluated for depression and also initiation of medications if deemed necessary. All other information in the discharge summary remains the same. Plan at this point is for patient to be transferred to rehab for physical therapy. Case management is aware of the patient and working on getting the patient's placement. DISCHARGE PLANNING: To be made by oncoming physician. KIARRA Shelby Olivas MD / [id number] CC: MD Adriel Rodríguez MD
--- NOTE | ~2017-01-21 | IDS ---
Interim Discharge Summary [facility] [address] [place]. [address] NAME: DEMOND PARADA : 59 STATUS : ADM IN PAT#: [id number] AGE: 61 ADM/REG DATE : 01/21/17 MR#: [id number] REPORT SERV DATE: 02/01/17 DICTATED BY: DATE: REPORT STATUS : Draft TRANSCRIBED BY: MODL DATE: 02/01/17 ADMISSION DATE: 01/21/2017 DISCHARGE DATE: INTERIM DISCHARGE DIAGNOSES: 1. Left foot osteomyelitis. 2. Charcot deformity of left lower extremity. 3. Diabetes mellitus type 2. 4. Hypertension. 5. Hyperlipidemia. 6. Seizures. 7. Severe protein calorie malnutrition. CONSULTING PHYSICIANS: 1. Dr. Maddox with Podiatry. 2. Dr. John Freeman with Infectious Disease. IMAGING: This week, none. For a full H and P, please refer to Dr. Ihsan Lopez' dictation on 01/21/2017. HOSPITAL COURSE/PROBLEM LIST: Assumed care of this patient in collaboration with Dr. Jose A Zamarripa. On 01/26/2017, the patient has been receiving IV vancomycin for left foot osteomyelitis. She has been afebrile. Last white blood cell count was 7.4. We are awaiting left BKA per Dr. Maddox. Prior to surgery, she will get an indium white blood cell nuclear scan to assess the extent of her osteomyelitis. The biggest issue this week, her diabetes has been very difficult to control. She states she has had multiple physicians that have been unable to control her blood sugar as an outpatient. She is seeing Dr. Adriana Hui at [facility], an sizing machine and drier operator. I have discontinued the patient's Levemir and started her home Toujeo per her sizing machine and drier operator. Her blood sugar has ranged from the 40s to the 400s. I have spoken extensively with the patient concerning diet, unsure if the patient is eating too much during some meals and not enough during others. I explained the importance of eating consistently. This morning, blood glucose was 280, and then after lunch, she dropped to 49. The patient reports not drinking her Glucerna that she normally drinks with meals. Normally, I would not think that this would cause this big of a fluctuation in blood glucose levels. However, I explained to the patient that she should stay consistent with her diet and drink Glucerna with every meal to help regulate her blood sugars. We will adjust her insulin to keep her from getting hyperglycemic and monitor closely. Hypertension, this is controlled, blood pressure is 120s to 130s, systolic. Seizures, the patient has not had any seizure activity. Continued her on Dilantin and Keppra. The patient does have severe protein calorie malnutrition. I checked a pre- albumin, it was 6.3 two days ago. I repeated it today, it is up to 10 after adding Glucerna with meals. I have talked extensively with the patient concerning calorie and protein needs and the importance of these and healing process. She understands. DISCHARGE PLANNING: I am unclear when the patient is going to have a BKA, hopefully, in the Interim Discharge Summary [address] [place]. [address] NAME: DEMOND PARADA : 59 STATUS : ADM IN [facility]#: [id number] AGE: 61 ADM/REG DATE : 01/21/17 MR#: [id number] REPORT SERV DATE: 02/01/17 DICTATED BY: DATE: REPORT STATUS : Draft TRANSCRIBED BY: MODL DATE: 02/01/17 next several days. PT eval has been ordered. Case Management involved for discharge planning whether the patient needs inpatient rehab versus home health. The discharge date is depending on when the patient actually gets a BKA. CLR/MODL Darrion Johnson NP / [id number] CC: MD Adriel Lutz MD John Ekong, MD
[2017-01-21] MEDS ORDERED: D100 PO (20:41)
[2017-01-21] MEDS ORDERED: LYRICA50 PO (20:42)
[2017-01-21] MEDS ORDERED: FYCOMPA6 MG PO (20:42)
[2017-01-21] MEDS ORDERED: TOPAMAX100 PO (20:43)
[2017-01-21] MEDS ORDERED: KEPPRA1000 MG PO (20:44)
[2017-01-21] MEDS ORDERED: LIPITOR20 PO (20:45)
[2017-01-21] MEDS ORDERED: HUMALOG SC ×2 (20:47)
[2017-01-21] MEDS ORDERED: TOUJEO (20:47)
[2017-01-21 22:03] LABS: WBC (NOT ORDERED) (RFLEX) 0 (0-5)
[2017-01-21 22:13] LABS: INTERNATIONAL NORMAL RATI 1.2 UNITS (-); PARTIAL THROMBO TIME 33.2 SEC (22.5-37.2)
[2017-01-21 22:13] LABS: ASCORBIC ACID (UR NOT ORDER) NEG (NEG); BILIRUBIN, URINE NEGATIVE (NEG); KETONE, URINE TRACE MG/DL (NEG); LEUKOCYTE ESTERASE(NOT OR NEG (NEG)
[2017-01-21 22:21] LABS: BASOPHILS 0.1 %; BASOPHILS ABSOLUTE 0.01 10/3/uL (0.0-0.16); EOSINOPHILS 0 %; HEMATOCRIT 24.3 % (36.0-48.0); HEMOGLOBIN 7.8 g/dL (12.0-16.0); IMMATURE GRANULOCYTES 0.2 %; IMMATURE GRANULOCYTES ABSOLUTE 0.02 10/3/uL (0.0-0.11); LYMPHOCYTES 8.4 %; LYMPHOCYTES ABSOLUTE 0.79 10/3/uL (0.67-4.30); MANUAL DIFF NO %; MEAN CORPUS HGB CONC 32.1 g/dL (32.0-36.0); MEAN CORPUSCULAR HEMOGLOB 32.4 pg (26.0-34.0); MEAN CORPUSCULAR VOLUME 100.8 fL (80-100); MEAN PLATELET VOLUME 10.2 fL (9.2-13.0); MONOCYTES 9.4 %; MONOCYTES ABSOLUTE 0.89 10/3/uL (0.21-1.20); NEUTROPHILS 81.9 %; NEUTROPHILS ABSOLUTE 7.75 10/3/uL (2.02-8.40); PLATELET COUNT 285 10/3/uL (150-400); RBC DISTRIBUTION WIDTH 13.9 % (12.0-16.0); RED CELL COUNT 2.41 10/6/uL (4.0-5.6); WHITE BLOOD CELLS 9.5 10/3/uL (4.5-10.5)
[2017-01-21 22:25] LABS: A/G RATIO 0.5 (0.7-1.9); ALBUMIN 2.5 G/DL (3.5-5.0); ALKALINE PHOSPHATASE 152 U/L (45-117); CALCIUM, SERUM 9.1 MG/DL (8.5-10.4); CHLORIDE, SERUM 106 MMOL/L (96-112); CHOL/HDL RATIO(NOT ORDER) 3.8 (0-5); CHOLESTEROL 162 MG/DL (< 200); CO2 (CARBON DIOXIDE) 23 MMOL/L (24-34); CREATININE 1.18 MG/DL (0.55-1.02); GFR AFRICAN AMERICAN 58 ML/MIN (>=60); GFR NON AFRICAN AMERICAN 50 ML/MIN (>=60); GLOBULIN 4.9 G/DL (2.5-4.1); HDL CHOLESTEROL 43 MG/DL (> 49); LDL CHOLESTEROL 94 MG/DL (< 130); NON-HDL CHOLESTEROL 119 MG/DL (< 160); PHOSPHORUS, SERUM 3.1 MG/DL (2.5-4.5); POTASSIUM, SERUM 4.3 MMOL/L (3.5-5.3); SGOT(AST) 17 U/L (5-40); SGPT(ALT) 14 U/L (5-65); SODIUM, SERUM 138 MMOL/L (135-148); TOTAL BILIRUBIN 0.3 MG/DL (0-1.2); TOTAL PROTEIN 7.4 G/DL (6.0-8.5); TRIGLYCERIDE 125 MG/DL (< 150)
[2017-01-21 22:29] LABS: BUN (BLOOD UREA NITROGEN) 28 MG/DL (6-23)
[2017-01-21 22:30] LABS: GLUCOSE, SERUM 542 MG/DL (60-99)
[2017-01-21 23:00] LABS: SED RATE > 140 MM/HR (0-20)
[2017-01-22 06:49] LABS: INTERNATIONAL NORMAL RATI 1.2 UNITS (-); PROTIME (NOT ORD) 15.1 SEC (12.0-14.5)
[2017-01-22 06:50] LABS: BASOPHILS 0 %; EOSINOPHILS 0 %; HEMATOCRIT 21.9 % (36.0-48.0); HEMOGLOBIN 7.4 g/dL (12.0-16.0); IMMATURE GRANULOCYTES 0.2 %; IMMATURE GRANULOCYTES ABSOLUTE 0.02 10/3/uL (0.0-0.11); LYMPHOCYTES 11.1 %; LYMPHOCYTES ABSOLUTE 0.96 10/3/uL (0.67-4.30); MANUAL DIFF NO %; MEAN CORPUS HGB CONC 33.8 g/dL (32.0-36.0); MEAN CORPUSCULAR VOLUME 97.8 fL (80-100); MEAN PLATELET VOLUME 9.8 fL (9.2-13.0); MONOCYTES 12.1 %; MONOCYTES ABSOLUTE 1.04 10/3/uL (0.21-1.20); NEUTROPHILS 76.6 %; PLATELET COUNT 271 10/3/uL (150-400); RBC DISTRIBUTION WIDTH 13.9 % (12.0-16.0); RED CELL COUNT 2.24 10/6/uL (4.0-5.6); WHITE BLOOD CELLS 8.6 10/3/uL (4.5-10.5)
[2017-01-22 06:55] LABS: BUN (BLOOD UREA NITROGEN) 25 MG/DL (6-23); CALCIUM, SERUM 9.3 MG/DL (8.5-10.4); CHLORIDE, SERUM 111 MMOL/L (96-112); CO2 (CARBON DIOXIDE) 22 MMOL/L (24-34); CREATININE 0.87 MG/DL (0.55-1.02); GFR AFRICAN AMERICAN 85 ML/MIN (>=60); GFR NON AFRICAN AMERICAN 73 ML/MIN (>=60); POTASSIUM, SERUM 3.7 MMOL/L (3.5-5.3); SODIUM, SERUM 144 MMOL/L (135-148)
[2017-01-22 06:56] LABS: GLUCOSE, SERUM 119 MG/DL (60-99)
[2017-01-23 05:50] LABS: BASOPHILS 0 %; EOSINOPHILS 0 %; HEMATOCRIT 25.8 % (36.0-48.0); HEMOGLOBIN 8.4 g/dL (12.0-16.0); IMMATURE GRANULOCYTES 0.1 %; IMMATURE GRANULOCYTES ABSOLUTE 0.01 10/3/uL (0.0-0.11); LYMPHOCYTES 12.4 %; LYMPHOCYTES ABSOLUTE 0.85 10/3/uL (0.67-4.30); MANUAL DIFF NO %; MEAN CORPUS HGB CONC 32.6 g/dL (32.0-36.0); MEAN CORPUSCULAR HEMOGLOB 31.9 pg (26.0-34.0); MEAN CORPUSCULAR VOLUME 98.1 fL (80-100); MEAN PLATELET VOLUME 10.3 fL (9.2-13.0); MONOCYTES 10.4 %; MONOCYTES ABSOLUTE 0.71 10/3/uL (0.21-1.20); NEUTROPHILS 77.1 %; NEUTROPHILS ABSOLUTE 5.27 10/3/uL (2.02-8.40); PLATELET COUNT 252 10/3/uL (150-400); RBC DISTRIBUTION WIDTH 17.1 % (12.0-16.0); RED CELL COUNT 2.63 10/6/uL (4.0-5.6); WHITE BLOOD CELLS 6.8 10/3/uL (4.5-10.5)
[2017-01-23 06:03] LABS: BUN (BLOOD UREA NITROGEN) 22 MG/DL (6-23); CALCIUM, SERUM 8.6 MG/DL (8.5-10.4); CHLORIDE, SERUM 113 MMOL/L (96-112); CO2 (CARBON DIOXIDE) 20 MMOL/L (24-34); CREATININE 0.74 MG/DL (0.55-1.02); GFR AFRICAN AMERICAN 103 ML/MIN (>=60); GFR NON AFRICAN AMERICAN 89 ML/MIN (>=60); SGOT(AST) 9 U/L (5-40); SGPT(ALT) 8 U/L (5-65); SODIUM, SERUM 142 MMOL/L (135-148); TOTAL BILIRUBIN 0.5 MG/DL (0-1.2); TOTAL PROTEIN 6.3 G/DL (6.0-8.5)
[2017-01-23 06:17] LABS: A/G RATIO 0.4 (0.7-1.9); ALBUMIN 1.9 G/DL (3.5-5.0); ALKALINE PHOSPHATASE 121 U/L (45-117); GLOBULIN 4.4 G/DL (2.5-4.1); GLUCOSE, SERUM 184 MG/DL (60-99)
[2017-01-24 05:18] LABS: BASOPHILS 0 %; EOSINOPHILS 0 %; HEMATOCRIT 25.7 % (36.0-48.0); HEMOGLOBIN 8.3 g/dL (12.0-16.0); IMMATURE GRANULOCYTES 0.2 %; IMMATURE GRANULOCYTES ABSOLUTE 0.01 10/3/uL (0.0-0.11); LYMPHOCYTES 19.3 %; LYMPHOCYTES ABSOLUTE 1.28 10/3/uL (0.67-4.30); MEAN CORPUS HGB CONC 32.3 g/dL (32.0-36.0); MEAN CORPUSCULAR HEMOGLOB 31.6 pg (26.0-34.0); MEAN CORPUSCULAR VOLUME 97.7 fL (80-100); MONOCYTES 12.5 %; MONOCYTES ABSOLUTE 0.83 10/3/uL (0.21-1.20); NEUTROPHILS ABSOLUTE 4.51 10/3/uL (2.02-8.40); PLATELET COUNT 287 10/3/uL (150-400); RBC DISTRIBUTION WIDTH 16.1 % (12.0-16.0); RED CELL COUNT 2.63 10/6/uL (4.0-5.6); WHITE BLOOD CELLS 6.6 10/3/uL (4.5-10.5)
[2017-01-24 05:20] LABS: MANUAL DIFF NO %
[2017-01-24 05:34] LABS: A/G RATIO 0.4 (0.7-1.9); ALBUMIN 1.9 G/DL (3.5-5.0); BUN (BLOOD UREA NITROGEN) 22 MG/DL (6-23); CALCIUM, SERUM 8.6 MG/DL (8.5-10.4); CHLORIDE, SERUM 111 MMOL/L (96-112); CO2 (CARBON DIOXIDE) 21 MMOL/L (24-34); CREATININE 0.86 MG/DL (0.55-1.02); GFR AFRICAN AMERICAN 86 ML/MIN (>=60); GFR NON AFRICAN AMERICAN 74 ML/MIN (>=60); GLOBULIN 4.4 G/DL (2.5-4.1); SGOT(AST) 14 U/L (5-40); SGPT(ALT) 10 U/L (5-65); SODIUM, SERUM 139 MMOL/L (135-148); TOTAL BILIRUBIN 0.3 MG/DL (0-1.2); TOTAL PROTEIN 6.3 G/DL (6.0-8.5)
[2017-01-24 05:35] LABS: ALKALINE PHOSPHATASE 140 U/L (45-117); GLUCOSE, SERUM 247 MG/DL (60-99)
[2017-01-25 07:12] LABS: BASOPHILS 0.2 %; BASOPHILS ABSOLUTE 0.01 10/3/uL (0.0-0.16); EOSINOPHILS 0 %; HEMATOCRIT 26.4 % (36.0-48.0); HEMOGLOBIN 8.3 g/dL (12.0-16.0); IMMATURE GRANULOCYTES 0.3 %; IMMATURE GRANULOCYTES ABSOLUTE 0.02 10/3/uL (0.0-0.11); LYMPHOCYTES 20.2 %; LYMPHOCYTES ABSOLUTE 1.32 10/3/uL (0.67-4.30); MEAN CORPUS HGB CONC 31.4 g/dL (32.0-36.0); MEAN CORPUSCULAR HEMOGLOB 31.6 pg (26.0-34.0); MEAN CORPUSCULAR VOLUME 100.4 fL (80-100); MONOCYTES 13.6 %; MONOCYTES ABSOLUTE 0.89 10/3/uL (0.21-1.20); NEUTROPHILS 65.7 %; NEUTROPHILS ABSOLUTE 4.31 10/3/uL (2.02-8.40); PLATELET COUNT 335 10/3/uL (150-400); RBC DISTRIBUTION WIDTH 15.6 % (12.0-16.0); RED CELL COUNT 2.63 10/6/uL (4.0-5.6); WHITE BLOOD CELLS 6.6 10/3/uL (4.5-10.5)
[2017-01-25 07:15] LABS: MANUAL DIFF NO %
[2017-01-25 07:33] LABS: A/G RATIO 0.4 (0.7-1.9); ALBUMIN 1.8 G/DL (3.5-5.0); ALKALINE PHOSPHATASE 144 U/L (45-117); BUN (BLOOD UREA NITROGEN) 26 MG/DL (6-23); CALCIUM, SERUM 8.5 MG/DL (8.5-10.4); CHLORIDE, SERUM 111 MMOL/L (96-112); CO2 (CARBON DIOXIDE) 23 MMOL/L (24-34); CREATININE 0.81 MG/DL (0.55-1.02); GFR AFRICAN AMERICAN 92 ML/MIN (>=60); GFR NON AFRICAN AMERICAN 79 ML/MIN (>=60); GLOBULIN 4.6 G/DL (2.5-4.1); GLUCOSE, SERUM 238 MG/DL (60-99); SGOT(AST) 10 U/L (5-40); SGPT(ALT) 10 U/L (5-65); SODIUM, SERUM 143 MMOL/L (135-148); TOTAL BILIRUBIN 0.3 MG/DL (0-1.2); TOTAL PROTEIN 6.4 G/DL (6.0-8.5)
[2017-01-26 06:27] LABS: BASOPHILS 0.2 %; BASOPHILS ABSOLUTE 0.01 10/3/uL (0.0-0.16); EOSINOPHILS 0 %; HEMATOCRIT 28.7 % (36.0-48.0); HEMOGLOBIN 9.1 g/dL (12.0-16.0); IMMATURE GRANULOCYTES 0.2 %; IMMATURE GRANULOCYTES ABSOLUTE 0.01 10/3/uL (0.0-0.11); LYMPHOCYTES 22.2 %; LYMPHOCYTES ABSOLUTE 1.43 10/3/uL (0.67-4.30); MEAN CORPUS HGB CONC 31.7 g/dL (32.0-36.0); MEAN CORPUSCULAR HEMOGLOB 31.9 pg (26.0-34.0); MEAN CORPUSCULAR VOLUME 100.7 fL (80-100); MEAN PLATELET VOLUME 10.1 fL (9.2-13.0); MONOCYTES 15.2 %; MONOCYTES ABSOLUTE 0.98 10/3/uL (0.21-1.20); NEUTROPHILS 62.2 %; NEUTROPHILS ABSOLUTE 4.02 10/3/uL (2.02-8.40); PLATELET COUNT 388 10/3/uL (150-400); RBC DISTRIBUTION WIDTH 15.3 % (12.0-16.0); RED CELL COUNT 2.85 10/6/uL (4.0-5.6); WHITE BLOOD CELLS 6.5 10/3/uL (4.5-10.5)
[2017-01-26 06:28] LABS: MANUAL DIFF NO %
[2017-01-26 06:39] LABS: A/G RATIO 0.4 (0.7-1.9); BUN (BLOOD UREA NITROGEN) 24 MG/DL (6-23); CALCIUM, SERUM 9.3 MG/DL (8.5-10.4); CHLORIDE, SERUM 112 MMOL/L (96-112); CO2 (CARBON DIOXIDE) 26 MMOL/L (24-34); CREATININE 0.74 MG/DL (0.55-1.02); GFR AFRICAN AMERICAN 103 ML/MIN (>=60); GFR NON AFRICAN AMERICAN 89 ML/MIN (>=60); POTASSIUM, SERUM 3.8 MMOL/L (3.5-5.3); SGOT(AST) 14 U/L (5-40); SGPT(ALT) 8 U/L (5-65); SODIUM, SERUM 146 MMOL/L (135-148); TOTAL BILIRUBIN 0.2 MG/DL (0-1.2)
[2017-01-26 06:40] LABS: ALKALINE PHOSPHATASE 159 U/L (45-117); GLUCOSE, SERUM 76 MG/DL (60-99)
[2017-01-27 06:09] LABS: BASOPHILS 0 %; EOSINOPHILS 0 %; HEMATOCRIT 26.2 % (36.0-48.0); HEMOGLOBIN 8.4 g/dL (12.0-16.0); IMMATURE GRANULOCYTES 0.4 %; IMMATURE GRANULOCYTES ABSOLUTE 0.03 10/3/uL (0.0-0.11); LYMPHOCYTES 20.2 %; LYMPHOCYTES ABSOLUTE 1.49 10/3/uL (0.67-4.30); MEAN CORPUS HGB CONC 32.1 g/dL (32.0-36.0); MEAN CORPUSCULAR HEMOGLOB 31.9 pg (26.0-34.0); MEAN CORPUSCULAR VOLUME 99.6 fL (80-100); MEAN PLATELET VOLUME 9.8 fL (9.2-13.0); MONOCYTES 12.7 %; MONOCYTES ABSOLUTE 0.94 10/3/uL (0.21-1.20); NEUTROPHILS 66.7 %; NEUTROPHILS ABSOLUTE 4.92 10/3/uL (2.02-8.40); PLATELET COUNT 410 10/3/uL (150-400); RBC DISTRIBUTION WIDTH 15.1 % (12.0-16.0); RED CELL COUNT 2.63 10/6/uL (4.0-5.6); WHITE BLOOD CELLS 7.4 10/3/uL (4.5-10.5)
[2017-01-27 06:13] LABS: MANUAL DIFF NO %
[2017-01-27 06:54] LABS: BUN (BLOOD UREA NITROGEN) 26 MG/DL (6-23); CALCIUM, SERUM 8.8 MG/DL (8.5-10.4); CHLORIDE, SERUM 113 MMOL/L (96-112); CO2 (CARBON DIOXIDE) 25 MMOL/L (24-34); CREATININE 0.77 MG/DL (0.55-1.02); FOLATE 5.2 NG/ML (>5.2); GFR AFRICAN AMERICAN 98 ML/MIN (>=60); GFR NON AFRICAN AMERICAN 85 ML/MIN (>=60); GLUCOSE, SERUM 83 MG/DL (60-99); POTASSIUM, SERUM 3.9 MMOL/L (3.5-5.3); PREALBUMIN 6.3 MG/DL (17.0-43.0); SODIUM, SERUM 145 MMOL/L (135-148)
[2017-01-29 06:54] LABS: BUN (BLOOD UREA NITROGEN) 30 MG/DL (6-23); CALCIUM, SERUM 8.5 MG/DL (8.5-10.4); CHLORIDE, SERUM 107 MMOL/L (96-112); CO2 (CARBON DIOXIDE) 23 MMOL/L (24-34); CREATININE 0.95 MG/DL (0.55-1.02); GFR AFRICAN AMERICAN 76 ML/MIN (>=60); GFR NON AFRICAN AMERICAN 66 ML/MIN (>=60); GLUCOSE, SERUM 433 MG/DL (60-99); POTASSIUM, SERUM 4.9 MMOL/L (3.5-5.3); SODIUM, SERUM 140 MMOL/L (135-148)
[2017-01-31 05:23] LABS: BUN (BLOOD UREA NITROGEN) 32 MG/DL (6-23); CHLORIDE, SERUM 106 MMOL/L (96-112); CO2 (CARBON DIOXIDE) 24 MMOL/L (24-34); CREATININE 0.88 MG/DL (0.55-1.02); GFR AFRICAN AMERICAN 83 ML/MIN (>=60); GFR NON AFRICAN AMERICAN 72 ML/MIN (>=60); GLUCOSE, SERUM 346 MG/DL (60-99); POTASSIUM, SERUM 5.1 MMOL/L (3.5-5.3); SODIUM, SERUM 139 MMOL/L (135-148)
[2017-02-02 06:29] LABS: BASOPHILS 0 %; EOSINOPHILS 0 %; HEMATOCRIT 28.1 % (36.0-48.0); HEMOGLOBIN 8.8 g/dL (12.0-16.0); IMMATURE GRANULOCYTES 0.3 %; IMMATURE GRANULOCYTES ABSOLUTE 0.02 10/3/uL (0.0-0.11); LYMPHOCYTES 22.1 %; LYMPHOCYTES ABSOLUTE 1.47 10/3/uL (0.67-4.30); MEAN CORPUS HGB CONC 31.3 g/dL (32.0-36.0); MEAN CORPUSCULAR HEMOGLOB 31.8 pg (26.0-34.0); MEAN CORPUSCULAR VOLUME 101.4 fL (80-100); MEAN PLATELET VOLUME 9.9 fL (9.2-13.0); MONOCYTES 12.5 %; MONOCYTES ABSOLUTE 0.83 10/3/uL (0.21-1.20); NEUTROPHILS 65.1 %; NEUTROPHILS ABSOLUTE 4.34 10/3/uL (2.02-8.40); PLATELET COUNT 469 10/3/uL (150-400); RBC DISTRIBUTION WIDTH 15.2 % (12.0-16.0); RED CELL COUNT 2.77 10/6/uL (4.0-5.6); WHITE BLOOD CELLS 6.7 10/3/uL (4.5-10.5)
[2017-02-02 06:30] LABS: MANUAL DIFF NO %
[2017-02-02 06:34] LABS: BUN (BLOOD UREA NITROGEN) 33 MG/DL (6-23); CALCIUM, SERUM 9.2 MG/DL (8.5-10.4); CHLORIDE, SERUM 109 MMOL/L (96-112); CO2 (CARBON DIOXIDE) 27 MMOL/L (24-34); CREATININE 0.82 MG/DL (0.55-1.02); GFR AFRICAN AMERICAN 91 ML/MIN (>=60); GFR NON AFRICAN AMERICAN 78 ML/MIN (>=60); GLUCOSE, SERUM 322 MG/DL (60-99); PHOSPHORUS, SERUM 3.7 MG/DL (2.5-4.5); POTASSIUM, SERUM 4.9 MMOL/L (3.5-5.3); SODIUM, SERUM 141 MMOL/L (135-148)
[2017-02-03 06:13] LABS: BASOPHILS 0 %; EOSINOPHILS 0 %; HEMOGLOBIN 8.5 g/dL (12.0-16.0); IMMATURE GRANULOCYTES 0.1 %; IMMATURE GRANULOCYTES ABSOLUTE 0.01 10/3/uL (0.0-0.11); LYMPHOCYTES 21.3 %; LYMPHOCYTES ABSOLUTE 1.57 10/3/uL (0.67-4.30); MEAN CORPUS HGB CONC 31.5 g/dL (32.0-36.0); MEAN CORPUSCULAR HEMOGLOB 31.7 pg (26.0-34.0); MEAN CORPUSCULAR VOLUME 100.7 fL (80-100); MEAN PLATELET VOLUME 9.7 fL (9.2-13.0); MONOCYTES 10.5 %; MONOCYTES ABSOLUTE 0.77 10/3/uL (0.21-1.20); NEUTROPHILS 68.1 %; NEUTROPHILS ABSOLUTE 5.01 10/3/uL (2.02-8.40); PLATELET COUNT 452 10/3/uL (150-400); RBC DISTRIBUTION WIDTH 15.2 % (12.0-16.0); RED CELL COUNT 2.68 10/6/uL (4.0-5.6); WHITE BLOOD CELLS 7.4 10/3/uL (4.5-10.5)
[2017-02-03 06:14] LABS: MANUAL DIFF NO %
[2017-02-03 06:31] LABS: A/G RATIO 0.5 (0.7-1.9); ALBUMIN 2.3 G/DL (3.5-5.0); ALKALINE PHOSPHATASE 150 U/L (45-117); BUN (BLOOD UREA NITROGEN) 36 MG/DL (6-23); CALCIUM, SERUM 9.1 MG/DL (8.5-10.4); CHLORIDE, SERUM 109 MMOL/L (96-112); CO2 (CARBON DIOXIDE) 29 MMOL/L (24-34); CREATININE 0.82 MG/DL (0.55-1.02); GFR AFRICAN AMERICAN 91 ML/MIN (>=60); GFR NON AFRICAN AMERICAN 78 ML/MIN (>=60); GLOBULIN 4.8 G/DL (2.5-4.1); POTASSIUM, SERUM 4.6 MMOL/L (3.5-5.3); SGOT(AST) 12 U/L (5-40); SGPT(ALT) 11 U/L (5-65); SODIUM, SERUM 143 MMOL/L (135-148); TOTAL BILIRUBIN 0.5 MG/DL (0-1.2); TOTAL PROTEIN 7.1 G/DL (6.0-8.5)
[2017-02-03 06:32] LABS: GLUCOSE, SERUM 90 MG/DL (60-99)
[2017-02-04 06:06] LABS: BASOPHILS 0 %; EOSINOPHILS 0 %; HEMATOCRIT 26.9 % (36.0-48.0); HEMOGLOBIN 8.5 g/dL (12.0-16.0); IMMATURE GRANULOCYTES 0.2 %; IMMATURE GRANULOCYTES ABSOLUTE 0.01 10/3/uL (0.0-0.11); LYMPHOCYTES 23.6 %; LYMPHOCYTES ABSOLUTE 1.55 10/3/uL (0.67-4.30); MEAN CORPUS HGB CONC 31.6 g/dL (32.0-36.0); MEAN CORPUSCULAR HEMOGLOB 32.1 pg (26.0-34.0); MEAN CORPUSCULAR VOLUME 101.5 fL (80-100); MEAN PLATELET VOLUME 9.3 fL (9.2-13.0); MONOCYTES 13.3 %; MONOCYTES ABSOLUTE 0.87 10/3/uL (0.21-1.20); NEUTROPHILS 62.9 %; NEUTROPHILS ABSOLUTE 4.13 10/3/uL (2.02-8.40); PLATELET COUNT 414 10/3/uL (150-400); RBC DISTRIBUTION WIDTH 15.3 % (12.0-16.0); RED CELL COUNT 2.65 10/6/uL (4.0-5.6); WHITE BLOOD CELLS 6.6 10/3/uL (4.5-10.5)
[2017-02-04 06:07] LABS: MANUAL DIFF NO %
[2017-02-04 06:24] LABS: A/G RATIO 0.5 (0.7-1.9); ALBUMIN 2.3 G/DL (3.5-5.0); ALKALINE PHOSPHATASE 144 U/L (45-117); CALCIUM, SERUM 8.9 MG/DL (8.5-10.4); CHLORIDE, SERUM 108 MMOL/L (96-112); CO2 (CARBON DIOXIDE) 27 MMOL/L (24-34); CREATININE 0.94 MG/DL (0.55-1.02); GFR AFRICAN AMERICAN 77 ML/MIN (>=60); GFR NON AFRICAN AMERICAN 66 ML/MIN (>=60); GLOBULIN 4.7 G/DL (2.5-4.1); POTASSIUM, SERUM 5.1 MMOL/L (3.5-5.3); SGOT(AST) 10 U/L (5-40); SGPT(ALT) 12 U/L (5-65); SODIUM, SERUM 140 MMOL/L (135-148)
[2017-02-04 06:25] LABS: BUN (BLOOD UREA NITROGEN) 42 MG/DL (6-23); GLUCOSE, SERUM 216 MG/DL (60-99)
[2017-02-05 06:30] LABS: BASOPHILS 0 %; EOSINOPHILS 0 %; HEMATOCRIT 28.1 % (36.0-48.0); HEMOGLOBIN 8.7 g/dL (12.0-16.0); IMMATURE GRANULOCYTES 0.3 %; IMMATURE GRANULOCYTES ABSOLUTE 0.02 10/3/uL (0.0-0.11); LYMPHOCYTES 22.9 %; LYMPHOCYTES ABSOLUTE 1.56 10/3/uL (0.67-4.30); MANUAL DIFF NO %; MEAN CORPUSCULAR HEMOGLOB 31.6 pg (26.0-34.0); MEAN CORPUSCULAR VOLUME 102.2 fL (80-100); MEAN PLATELET VOLUME 9.5 fL (9.2-13.0); MONOCYTES 13.2 %; NEUTROPHILS 63.6 %; NEUTROPHILS ABSOLUTE 4.33 10/3/uL (2.02-8.40); PLATELET COUNT 418 10/3/uL (150-400); RBC DISTRIBUTION WIDTH 15.2 % (12.0-16.0); RED CELL COUNT 2.75 10/6/uL (4.0-5.6); WHITE BLOOD CELLS 6.8 10/3/uL (4.5-10.5)
[2017-02-05 06:43] LABS: A/G RATIO 0.5 (0.7-1.9); ALBUMIN 2.4 G/DL (3.5-5.0); ALKALINE PHOSPHATASE 148 U/L (45-117); CHLORIDE, SERUM 112 MMOL/L (96-112); CO2 (CARBON DIOXIDE) 26 MMOL/L (24-34); CREATININE 0.89 MG/DL (0.55-1.02); GFR AFRICAN AMERICAN 82 ML/MIN (>=60); GFR NON AFRICAN AMERICAN 71 ML/MIN (>=60); GLOBULIN 4.9 G/DL (2.5-4.1); GLUCOSE, SERUM 203 MG/DL (60-99); SGOT(AST) 11 U/L (5-40); SGPT(ALT) 14 U/L (5-65); SODIUM, SERUM 140 MMOL/L (135-148); TOTAL PROTEIN 7.3 G/DL (6.0-8.5)
[2017-02-05 06:44] LABS: BUN (BLOOD UREA NITROGEN) 46 MG/DL (6-23); TOTAL BILIRUBIN 0.2 MG/DL (0-1.2)
[2017-02-06 04:48] LABS: BASOPHILS 0 %; EOSINOPHILS 0 %; HEMATOCRIT 27.7 % (36.0-48.0); HEMOGLOBIN 8.5 g/dL (12.0-16.0); IMMATURE GRANULOCYTES 0.2 %; IMMATURE GRANULOCYTES ABSOLUTE 0.02 10/3/uL (0.0-0.11); LYMPHOCYTES 10.4 %; LYMPHOCYTES ABSOLUTE 0.88 10/3/uL (0.67-4.30); MANUAL DIFF NO %; MEAN CORPUS HGB CONC 30.7 g/dL (32.0-36.0); MEAN CORPUSCULAR HEMOGLOB 31.8 pg (26.0-34.0); MEAN CORPUSCULAR VOLUME 103.7 fL (80-100); MEAN PLATELET VOLUME 9.5 fL (9.2-13.0); MONOCYTES 5.7 %; MONOCYTES ABSOLUTE 0.48 10/3/uL (0.21-1.20); NEUTROPHILS 83.7 %; NEUTROPHILS ABSOLUTE 7.05 10/3/uL (2.02-8.40); PLATELET COUNT 404 10/3/uL (150-400); RBC DISTRIBUTION WIDTH 15.4 % (12.0-16.0); RED CELL COUNT 2.67 10/6/uL (4.0-5.6); WHITE BLOOD CELLS 8.4 10/3/uL (4.5-10.5)
[2017-02-06 05:07] LABS: A/G RATIO 0.5 (0.7-1.9); ALBUMIN 2.4 G/DL (3.5-5.0); ALKALINE PHOSPHATASE 144 U/L (45-117); BUN (BLOOD UREA NITROGEN) 38 MG/DL (6-23); CALCIUM, SERUM 8.7 MG/DL (8.5-10.4); CHLORIDE, SERUM 110 MMOL/L (96-112); CO2 (CARBON DIOXIDE) 23 MMOL/L (24-34); CREATININE 0.83 MG/DL (0.55-1.02); GFR AFRICAN AMERICAN 89 ML/MIN (>=60); GFR NON AFRICAN AMERICAN 77 ML/MIN (>=60); GLOBULIN 4.6 G/DL (2.5-4.1); GLUCOSE, SERUM 285 MG/DL (60-99); POTASSIUM, SERUM 5.7 MMOL/L (3.5-5.3); SGOT(AST) 11 U/L (5-40); SGPT(ALT) 13 U/L (5-65); SODIUM, SERUM 140 MMOL/L (135-148); TOTAL BILIRUBIN 0.3 MG/DL (0-1.2)
[2017-02-07 06:14] LABS: BASOPHILS 0 %; EOSINOPHILS 0 %; HEMATOCRIT 23.9 % (36.0-48.0); HEMOGLOBIN 7.5 g/dL (12.0-16.0); IMMATURE GRANULOCYTES 0.1 %; IMMATURE GRANULOCYTES ABSOLUTE 0.01 10/3/uL (0.0-0.11); LYMPHOCYTES ABSOLUTE 1.28 10/3/uL (0.67-4.30); MANUAL DIFF NO %; MEAN CORPUS HGB CONC 31.4 g/dL (32.0-36.0); MEAN CORPUSCULAR HEMOGLOB 32.6 pg (26.0-34.0); MEAN CORPUSCULAR VOLUME 103.9 fL (80-100); MEAN PLATELET VOLUME 9.7 fL (9.2-13.0); MONOCYTES 11.1 %; MONOCYTES ABSOLUTE 0.84 10/3/uL (0.21-1.20); NEUTROPHILS 71.8 %; NEUTROPHILS ABSOLUTE 5.42 10/3/uL (2.02-8.40); PLATELET COUNT 333 10/3/uL (150-400); RBC DISTRIBUTION WIDTH 15.5 % (12.0-16.0); WHITE BLOOD CELLS 7.6 10/3/uL (4.5-10.5)
[2017-02-07 06:28] LABS: A/G RATIO 0.6 (0.7-1.9); ALBUMIN 2.3 G/DL (3.5-5.0); BUN (BLOOD UREA NITROGEN) 37 MG/DL (6-23); CALCIUM, SERUM 8.5 MG/DL (8.5-10.4); CHLORIDE, SERUM 104 MMOL/L (96-112); CO2 (CARBON DIOXIDE) 27 MMOL/L (24-34); CREATININE 1.02 MG/DL (0.55-1.02); GFR AFRICAN AMERICAN 70 ML/MIN (>=60); GFR NON AFRICAN AMERICAN 60 ML/MIN (>=60); GLOBULIN 4.1 G/DL (2.5-4.1); POTASSIUM, SERUM 5.5 MMOL/L (3.5-5.3); SGOT(AST) 9 U/L (5-40); SGPT(ALT) 10 U/L (5-65); SODIUM, SERUM 136 MMOL/L (135-148); TOTAL BILIRUBIN 0.6 MG/DL (0-1.2); TOTAL PROTEIN 6.4 G/DL (6.0-8.5)
[2017-02-07 06:30] LABS: ALKALINE PHOSPHATASE 117 U/L (45-117); GLUCOSE, SERUM 558 MG/DL (60-99)
[2017-02-08 03:51] LABS: BASOPHILS 0 %; EOSINOPHILS 0 %; HEMATOCRIT 24.9 % (36.0-48.0); HEMOGLOBIN 7.7 g/dL (12.0-16.0); IMMATURE GRANULOCYTES 0.2 %; IMMATURE GRANULOCYTES ABSOLUTE 0.02 10/3/uL (0.0-0.11); LYMPHOCYTES ABSOLUTE 1.15 10/3/uL (0.67-4.30); MEAN CORPUS HGB CONC 30.9 g/dL (32.0-36.0); MEAN CORPUSCULAR HEMOGLOB 31.8 pg (26.0-34.0); MEAN CORPUSCULAR VOLUME 102.9 fL (80-100); MEAN PLATELET VOLUME 9.5 fL (9.2-13.0); MONOCYTES 11.8 %; MONOCYTES ABSOLUTE 0.97 10/3/uL (0.21-1.20); NEUTROPHILS ABSOLUTE 6.05 10/3/uL (2.02-8.40); PLATELET COUNT 320 10/3/uL (150-400); RBC DISTRIBUTION WIDTH 15.6 % (12.0-16.0); RED CELL COUNT 2.42 10/6/uL (4.0-5.6); WHITE BLOOD CELLS 8.2 10/3/uL (4.5-10.5)
[2017-02-08 03:54] LABS: MANUAL DIFF NO %
[2017-02-08 04:07] LABS: A/G RATIO 0.6 (0.7-1.9); ALBUMIN 2.5 G/DL (3.5-5.0); ALKALINE PHOSPHATASE 123 U/L (45-117); BUN (BLOOD UREA NITROGEN) 49 MG/DL (6-23); CALCIUM, SERUM 8.9 MG/DL (8.5-10.4); CHLORIDE, SERUM 102 MMOL/L (96-112); CO2 (CARBON DIOXIDE) 25 MMOL/L (24-34); CREATININE 1.34 MG/DL (0.55-1.02); GFR AFRICAN AMERICAN 50 ML/MIN (>=60); GFR NON AFRICAN AMERICAN 43 ML/MIN (>=60); GLOBULIN 4.5 G/DL (2.5-4.1); GLUCOSE, SERUM 597 MG/DL (60-99); POTASSIUM, SERUM 4.4 MMOL/L (3.5-5.3); SGOT(AST) 14 U/L (5-40); SGPT(ALT) 13 U/L (5-65); SODIUM, SERUM 136 MMOL/L (135-148); TOTAL BILIRUBIN 0.3 MG/DL (0-1.2)
[2017-02-10 07:33] LABS: EOSINOPHILS 0 %; HEMOGLOBIN 7.1 g/dL (12.0-16.0); LYMPHOCYTES 22.6 %; MEAN CORPUS HGB CONC 32.4 g/dL (32.0-36.0); MEAN CORPUSCULAR HEMOGLOB 32.9 pg (26.0-34.0); MEAN CORPUSCULAR VOLUME 101.4 fL (80-100); MEAN PLATELET VOLUME 9.3 fL (9.2-13.0); MONOCYTES 8.8 %; NEUTROPHILS 68.4 %; PLATELET COUNT 304 10/3/uL (150-400); RBC DISTRIBUTION WIDTH 15.6 % (12.0-16.0); RED CELL COUNT 2.16 10/6/uL (4.0-5.6); WHITE BLOOD CELLS 5.3 10/3/uL (4.5-10.5)
[2017-02-10 07:34] LABS: BASOPHILS 0 %; IMMATURE GRANULOCYTES 0.2 %; IMMATURE GRANULOCYTES ABSOLUTE 0.01 10/3/uL (0.0-0.11); MONOCYTES ABSOLUTE 0.47 10/3/uL (0.21-1.20); NEUTROPHILS ABSOLUTE 3.64 10/3/uL (2.02-8.40)
[2017-02-10 07:35] LABS: HEMATOCRIT 21.9 % (36.0-48.0); MANUAL DIFF NO %
[2017-02-10 08:14] LABS: % IRON SAT 21 % (20-50); BUN (BLOOD UREA NITROGEN) 35 MG/DL (6-23); CALCIUM, SERUM 8.8 MG/DL (8.5-10.4); CHLORIDE, SERUM 115 MMOL/L (96-112); CO2 (CARBON DIOXIDE) 25 MMOL/L (24-34); CREATININE 0.65 MG/DL (0.55-1.02); FERRITIN 248 NG/ML (8-252); GFR AFRICAN AMERICAN 113 ML/MIN (>=60); GFR NON AFRICAN AMERICAN 97 ML/MIN (>=60); GLUCOSE, SERUM 134 MG/DL (60-99); IRON BINDING CAPACITY 185 MCG/DL (225-410); IRON, SERUM 39 MCG/DL (35-150); POTASSIUM, SERUM 3.9 MMOL/L (3.5-5.3); SODIUM, SERUM 146 MMOL/L (135-148)
== END 2017-02-10 16:36 | DRG 477 ==
LOC: CDU1 17:44 → 5SO 17:59
PROVIDERS: Hospitalist; Nurse Practitioner Acute Care; Nurse Practitioner Family; Podiatrist
PROC: 0QBM0ZX Excision of Left Tarsal, Open Approach, Diagnostic (ICD-10-PCS; principal; 2017-01-22 13:00)
PROC: 0HDNXZZ Extraction of Left Foot Skin, External Approach (ICD-10-PCS; 2017-01-22 13:00)
PROC: 0SPG04Z Removal of Internal Fixation Device from Left Ankle Joint, Open Approach (ICD-10-PCS; 2017-01-22 13:00)
DX: T84.223A Displacement of internal fixation device of bones of foot and toes, initial encounter (principal); E43 Unspecified severe protein-calorie malnutrition; A52.16 Charcot's arthropathy (tabetic); E11.69 Type 2 diabetes mellitus with other specified complication; E11.42 Type 2 diabetes mellitus with diabetic polyneuropathy; M86.8X7 Other osteomyelitis, ankle and foot; I10 Essential (primary) hypertension; E78.5 Hyperlipidemia, unspecified; G40.909 Epilepsy, unspecified, not intractable, without status epilepticus; Z99.3 Dependence on wheelchair; Z83.3 Family history of diabetes mellitus; Z82.49 Family history of ischemic heart disease and other diseases of the circulatory system; Z79.82 Long term (current) use of aspirin; Z79.899 Other long term (current) drug therapy; Y83.8 Other surgical procedures as the cause of abnormal reaction of the patient, or of later complication, without mention of misadventure at the time of the procedure; Y92.89 Other specified places as the place of occurrence of the external cause
CPT/HCPCS: 36415; 36569; 73610-LT; 73630-LT; 73700-LT; 76000; 78806; 80048; 80053; 80061; 80202; 81001; 82306; 82607; 82728; 82746; 82947; 82962; 83036; 83540; 83550; 83735; 84100; 84134; 85025; 85610; 85652; 85730; 86850; 86900; 86901; 86920; 87015; 87040; 87070; 87075; 87077; 87102; 87116; 87186; 87205; 88300; 88304; 88307; 88311; 93923; 97110-GP; 97116-GP; 97161-GP; 97164-GP; 97530-GP; A9270-GY; A9569; C1751; G8978-CJ-GP; G8978-CK-GP; G8979-CI-GP; G8979-CJ-GP; J0692; J2250; J2270; J2405; J2997; J3010; J3360; J3370; P9016